=== PATIENT | female | born 1960 | race Caucasian/White ===

== ENCOUNTER → 2018-10-04 08:39 | Outpatient (CLI) | payer OTHER, SELFPAY ==
[2017-07-01 06:10] VITALS: BMI 22.9
[2018-10-04 10:43] LABS: Cholesterol 202 mg/dL (200); High Density Lipoprotein 49 mg/dL; Triglycerides 119 mg/dL; Very Low Density Lipoprotein 24 mg/dL (5-40)
== END ==
PROVIDERS: Family Provider Family Medicine; PCP Family Medicine; Referring Provider Family Medicine; Visit Provider Family Medicine
DX: E78.5 Hyperlipidemia, unspecified (principal)
CPT/HCPCS: 36415; 80061

== ENCOUNTER → 2018-10-24 11:42 | Outpatient (CLI) | payer OTHER, SELFPAY ==
[2018-10-24 15:37] LABS: Internal QC Validated? YES +Cl - CLEAR BKGD; Monotest Negative (Negative)
== END ==
PROVIDERS: Family Provider Family Medicine; PCP Family Medicine; Visit Provider Family Medicine
DX: B34.9 Viral infection, unspecified (principal)
CPT/HCPCS: 36415; 86308

== ENCOUNTER → 2018-12-09 | Outpatient (CLI) | payer OTHER, SELFPAY ==
[2017-07-01 06:10] VITALS: BMI 22.9
== END | disposition home or self-care (01) ==
LOC: BFHLAB 14:04
PROVIDERS: Family Provider Family Medicine; PCP Family Medicine; Visit Provider Family Medicine
DX: N39.0 Urinary tract infection, site not specified (principal)
CPT/HCPCS: 87086; 87088

== ENCOUNTER → 2019-01-28 | Outpatient (CLI) | payer OTHER, SELFPAY | END | disposition home or self-care (01) | LOC: BFHLAB 13:25 | PROVIDERS: Family Provider Family Medicine; PCP Family Medicine; Visit Provider Family Medicine | DX: R30.0 Dysuria (principal) | CPT/HCPCS: 87086; 87088; 87186 ==

== ENCOUNTER 2019-03-19 07:55 | Outpatient (RCR) | payer OTHER, SELFPAY ==
--- NOTE | 2019-03-20 10:11 | HP.PTEVAL_ITS ---
Patient's Visit Information RAFAEL FRIAS is a 59 year old F referred to Physical Therapy by Juana Weaver DO with a diagnosis of R lateral epcondylitis. Date of Evaluation: 03/19/19 Physical Therapist: Josué Barajas DPT - Visit Plan Frequency: 2x /Week Duration: 4 Weeks Plan: Start with US to medial aspect of ulnar groove, ulnar and radial nerve glides, wrist/elbow strengthening. - Subjective Findings: Pt. is here today for her initial evaluation with diagnosis of R lateral epicondylitis. Pt. reports having pain since the start of summer. She reports her pain has improved , but now has pain at olecranon process on both sides.Pt. reports no mech of injury. 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 Pt. reports having to stop lifting due to think this was causing her pain, but stopping has not resolved her pain. Pt. has trialed some ice and heat, no relief. Mild relief with ibuprophen. Pt. has not had any imaging. Pt. does play the violin, but has not do so recently due to time constraints. Pt. is hopeful to reduce symptoms in order to get back to all recreational activities without limitations. - Pain R medial/lateral aspects of olecranon Pain Intensity (Out of 10): 2 Pain Intensity Range: 1, 6 - Objective POSTURE: Pt. has slight FH posture, slight roundeds shoulders, but equal heights. Pt. has normal elbow positioning as well. PALPATION: Pt. has slight tenderness at lateral epcondyle, but more pain at ulnar groove and lateral to olecranon process. No distal pain. NEURO: normal throughoutl but does have slight decreased sensation at 4/5 fingers. ROM: Pt. has full ROM of R shoulder and elbow, but does have pain at both end range flexion and end range extension, same places. MMT: RUE: wrist 5/5 throughout; elbow 4+/5 throughout; shoulder 4+/5 throughout. 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 LUE- 58#, 59#, 39# - Special Tests R Elbow Flexion Test - Cubital Tunnel: Positive R Elbow Tinels - Ulnar n.: Positive R Elbow Flexion/Elbow Exension Test Supine - Elbow Fracture: Negative R Elbow Valgus Stress Test - MCL Instability: Negative R Elbow Varus Stress Stest - MCL Instability: Negative R Elbow Posterior Lateral Rotator Instability - as named: Negative R Elbow Biceps Squeeze - Rupture Biceps: Negative R Elbow Lat Epiconylitis - as named: Negative - Goals Goal 1:: Pt. to be I with HEP. Goal Time Frame: 4-6 Weeks Goal 2:: Pt. to sleep throughout the night without icnrease in symptoms. Goal Time Frame: 4-6 Weeks Goal 3:: Pt. to have increased RUE strength increased symmetical to L side including accounts payables clerk strength. Goal Time Frame: 4-6 Weeks Goal 4:: Pt. to be able to resume all lifting routines without increase in symptoms. Goal Time Frame: 4-6 Weeks Goal 5:: Pt. to resume playing violin without increase in symptoms. - Rehabilitation Potential Physical Therapy Diagnosis: Pt. has signs and symptoms consistent with R elbow pain. With the special testing, she does have some mild lateral epicondyle pain, but most of her pain is now coming from posterior aspect of elbow (both medially and laterally to olecranon process). Pt. has some nerve type symptoms along her ulnar nerve. With this in mind I want to rule out a nerve entraptment or soft tissue causing nerve compression. Rehabilitation Potential: Good - Anticipated Interventions Patient/Client Instruction: Educate patient on: Condition, Plan of Care, Risk Factors, Benefits of Fitness Program For the Purpose of:: To facilitate caregiver knowledge, To improve self management, To prevent re-injury, To improve ability to perform tasks related to life management, To improve tolerance to ADL's Therapeutic Exercise to Include: Strength training, Power training, Postural training, Flexibilty training, Passive ROM, Active ROM, Scapular Strength/Stabilization For the Purpose of:: To decrease pain, To decrease swelling/inflammation, To increase ROM, To improve nutrient delivery to tissue, To increase oxygenation perfusion, To improve muscle performance and motor function, To improve ability of physical actions for home/community/work/leisure, To improve health of tissue, To decrease soft tissue restriction, To increase flexibility/ROM, To improve balance Manual Therapy Techniques to Include: Mobilization, Functional dry needling, Soft tissue mobilization For the Purpose of:: To decrease pain, To decrease swelling/inflammation, To increase ROM, To improve nutrient delivery to tissue, To improve health of tissue, To decrease soft tissue restriction IF ES: Yes Cryotherapy (ice pack, ice massage): Yes Ultrasound (thermal/non thermal): Yes For the Purpose of:: To decrease pain, To decrease swelling/inflammation, To improve nutrient delivery to tissue, To improve health of tissue, To decrease soft tissue restriction, To increase flexibility/ROM Thank you for the opportunity to evaluate your patient. For Medicare and Medicare HMO plans, please review the plan of care and approve it. It will need to be FAXED BACK to us at [phone] for Medicare purposes. For Medicare only, by signing this I certify the plan of care. Please let me know if there are questions or concerns regarding this plan of care. Physician Signature: Date:
--- NOTE | 2019-09-14 09:30 | HP.PT.NRP ---
HP - Discharge Summary (1) - Patient Information RAFAEL FRIAS was seen in my office for initial evaluation on 03/19/19. The following Plan of Care was established for this patient: Initial Frequency: 2x /Week Initial Duration: 4 Weeks - Anticipated Interventions Patient/Client Instruction: Educate patient on: Condition, Plan of Care, Risk Factors, Benefits of Fitness Program For the Purpose of:: To facilitate caregiver knowledge, To improve self management, To prevent re-injury, To improve ability to perform tasks related to life management, To improve tolerance to ADL's Therapeutic Exercise to Include: Strength training, Power training, Postural training, Flexibilty training, Passive ROM, Active ROM, Scapular Strength/Stabilization For the Purpose of:: To decrease pain, To decrease swelling/inflammation, To increase ROM, To improve nutrient delivery to tissue, To increase oxygenation perfusion, To improve muscle performance and motor function, To improve ability of physical actions for home/community/work/leisure, To improve health of tissue, To decrease soft tissue restriction, To increase flexibility/ROM, To improve balance Manual Therapy Techniques to Include: Mobilization, Functional dry needling, Soft tissue mobilization For the Purpose of:: To decrease pain, To decrease swelling/inflammation, To increase ROM, To improve nutrient delivery to tissue, To improve health of tissue, To decrease soft tissue restriction IF ES: Yes Cryotherapy (ice pack, ice massage): Yes Ultrasound (thermal/non thermal): Yes For the Purpose of:: To decrease pain, To decrease swelling/inflammation, To improve nutrient delivery to tissue, To improve health of tissue, To decrease soft tissue restriction, To increase flexibility/ROM This patient was last seen in our office 03/19/19. Pertinent comments regarding their Physical therapy will appear below: Pt. was seen for her initial evaluaton with lateral epicondylitis. Pt. has not been seen in several months and will be DC from PT at this point intime. At this point I will be discontinuing this patient from physical therapy. I would be happy to see this patient again in the future if found appropriate by the physician. Thank you! Josué Barajas, ROSALVA
== END 2019-03-19 19:00 | disposition home or self-care (01) ==
LOC: PT 07:55
PROVIDERS: Family Provider Family Medicine; PCP Family Medicine; Referring Provider Family Medicine; Visit Provider Family Medicine
DX: M77.11 Lateral epicondylitis, right elbow (principal)
CPT/HCPCS: 97161

== ENCOUNTER → 2020-04-16 | Outpatient (CLI) | payer OTHER, SELFPAY ==
[2017-07-01 06:10] VITALS: BMI 22.9
[2020-04-16 11:16] LABS: Cholesterol 237 mg/dL (200); High Density Lipoprotein 46 mg/dL; Triglycerides 124 mg/dL; Very Low Density Lipoprotein 25 mg/dL (5-40)
== END | disposition home or self-care (01) ==
LOC: LAB 10:14
PROVIDERS: PCP Family Medicine; Referring Provider Family Medicine; Visit Provider Family Medicine
DX: E78.5 Hyperlipidemia, unspecified (principal)
CPT/HCPCS: 36415; 80061

== ENCOUNTER → 2021-07-25 14:26 | Outpatient (CLI) | payer OTHER, SELFPAY ==
--- NOTE | 2021-07-25 14:30 | BI_ITS ---
MAMMOGRAPHY - BILATERAL DIAGNOSTIC REASON FOR EXAM: Female, 61 years old. One-week history of right breast lump. Prior right breast biopsy. PERTINENT HISTORY: Grandmother with breast cancer. TECHNIQUE: Digital bilateral breast maribel (3D mammographic acquisition) in the CC and MLO projections. 2-D mediolateral oblique (MLO) and craniocaudad (CC) views of both breasts were obtained. CAD: Full Field Digital Mammography with Computer Added Detection was performed. COMPARISON: Comparison is made with prior abdomen examination dated 09/30/2020. FINDINGS: Breast Composition: There are scattered areas of fibroglandular density. There are no dominant masses or suspicious calcifications. A tissue clip marker is seen within a 2 mm nodular density in the upper outer aspect of the right breast. This is unchanged. Stable benign-appearing bilateral axillary lymph nodes No other significant abnormalities are identified. There has been no significant change since the prior study. BI/DIAG MAMM W/CAD, BILAT IMPRESSION: Stable bilateral diagnostic mammogram. With the patient''s history of a palpable lump in the right breast, correlation with ultrasound is recommended. ASSESSMENT CATEGORY: BIRADS Category 0: Incomplete. Need additional imaging evaluation. A letter regarding these results will be sent to the patient by the facility within 30 days. Approximately 10% of breast cancers are not detected by mammography. A normal mammogram should not delay biopsy of a clinically suspicious abnormality. Electronically Signed: Kj Lutz MD at 8:39 EST , Service support ,
--- NOTE | 2021-07-25 15:23 | US_ITS ---
STUDY: ULTRASOUND BREAST - RIGHT REASON FOR EXAM: Female, 61 years old. Palpable lump in the right breast. TECHNIQUE: Axial and longitudinal images of the RIGHT breast were performed with a high resolution ultrasound transducer. # OF IMAGES: 32 COMPARISON: Comparison is made with prior mammogram done earlier in the day. FINDINGS: RIGHT Breast: The inferior half of the right breast was examined by ultrasound. Fibroglandular tissue is seen. No significant abnormality is present. US/Breast Limited Unilateral IMPRESSION: Unremarkable sonogram. ASSESSMENT CATEGORY: BIRADS Category 1: Negative. A letter regarding these results will be sent to the patient by the facility within 30 days. Electronically Signed: Kj Lutz MD at 8:40 EST , Service support ,
== END ==
PROVIDERS: PCP Family Medicine; Visit Provider Family Medicine
DX: N63.14 Unspecified lump in the right breast, lower inner quadrant (principal)
CPT/HCPCS: 76642; 77062; 77066; G0279

== ENCOUNTER 2022-01-22 14:30 | Outpatient (RCR) | payer OTHER, SELFPAY ==
--- NOTE | 2021-12-21 16:48 | HP.PTEVAL_ITS ---
Patient's Visit Information RAFAEL FRIAS is a 61 year old F referred to Physical Therapy by Dr. Mojgan Marino MD with a diagnosis of neck pain. Date of Evaluation: 12/21/21 Physical Therapist: Min Painting, ZABRINAT, OCS, CSCS - Visit Plan Frequency: 2x /Week Duration: 4-6 Weeks Plan: 2x/week for 4 weeks for... 1. STM to L UT and lev scap and stretch same. 2. progress Sera ret/ext ex and cervical mobs as needed. 3. strength neck and posture and progress to HEP. 4. MH as needed. - Subjective Neck has been hurting on left side in upper neck and into UT. Has been hurting on and off for months without reason. More intense first week in December for no apparent reason, was hiking alot at outdoor education camp. Worse in the morning and can wake her up at night. Changing pillows did not help. Meds include ibuprofen which helps but doesn't want to take alf. Tried voltaren which has not helped. No arm symptoms of tingling or weakness or pain. Wakes her up at night sometimes. 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 Plays violin sidebent left which does not hurt or keep her from playing. Tried exercise at home stetching into flexion and extension. HEP at home includes PPU, pelvic tilts, bugs, quadruped bugs, neck ROM, band for UE, 5# weights rows, - Pain L neck Pain Intensity (Out of 10): 1 Pain Intensity Range: 0, 4 - Objective Walks and trasnfers I today. Posture is forward head adn elevated scap B. Tender to touch L lev scap origin and insertion on scap. Tighter L vs R. - c/s compression. UE strength 4/5 without myotomal problems or unusual pain. sensation UE WNL to gross light touch. Reflexes bi and tri 2/3. AROM c/s ext 48 pain left. SB L limited and stretchy vs R. Rotation L 45 and R 70 with pain L. repeated protraction causes L neck pain. NE overall. repeated retraction no pain...NE. repeated ext much better motion and NE pain. - Balance/Special Test Scores Oswestry Neck Score: 10 - Goals Goal 1:: Full aROM cervical without pain Goal Time Frame: 2-4 Weeks Goal 2:: Patien t feel neck pain 80% better and manageable with ex Goal Time Frame: 4-6 Weeks Goal 3:: less than 5 score on oswestry Goal Time Frame: 4-6 Weeks Goal 4:: I HEP to manage neck symptoms Goal Time Frame: 4-6 Weeks - Rehabilitation Potential Physical Therapy Diagnosis: likely cervical derangement and soft tissue tenderness effecting function Rehabilitation Potential: Fair - Anticipated Interventions Patient/Client Instruction: Educate patient on: Condition, Plan of Care For the Purpose of:: To decrease pain, To increase ROM, To increase tolerance to activity/condition/position, To improve ability of physical actions for home/community/work/leisure Therapeutic Exercise to Include: Strength training, Postural training, Passive ROM, Active ROM, Sera Exercises For the Purpose of:: To decrease pain, To decrease swelling/inflammation, To improve muscle performance and motor function, To improve ability of physical actions for home/community/work/leisure, To improve gait and locomotor functions Manual Therapy Techniques to Include: Mobilization, Passive ROM, Soft tissue mobilization For the Purpose of:: To decrease pain, To increase ROM Thermo therapy (hot pack): Yes For the Purpose of:: To decrease pain, To increase ROM Thank you for the opportunity to evaluate your patient. For Medicare and Medicare HMO plans, please review the plan of care and approve it. It will need to be FAXED BACK to us at [phone] for Medicare purposes. For Medicare only, by signing this I certify the plan of care. Please let me know if there are questions or concerns regarding this plan of care. Physician Signature: Date:____
--- NOTE | 2022-01-22 15:00 | HP.PTDCSUM ---
It has been my pleasure to treat RAFAEL FRIAS referred by Dr. Mojgan Marino MD, with the diagnosis of neck pain for a total of 6 visit(s). Discharge Date: 01/22/22 Please see the following information for a summary of their discharge status. Subjective: Up and down. Was on vacationand had intermittent pain. Started to keep her up at night 2/7 nights. Pain is still up to 8/10 in L UT. Turning head to the left can be difficult at times rotation. 2/10 at most times. Infrequent days that it is 0/10. Doing strengthening fairly regularly at home. No f/u scheduled with doctor. L neck Pain Intensity (Out of 10): 0 % Improvement: 0 Objective/Function: 62 L rot and 70 R, pain to the L. 55 extension. Full UE AROM. reflexes 2/3 bi and tri. Pt not presenting alot differently than initial eval with ROM or pain. Goal 1:: Full aROM cervical without pain Goal Progress: Not Progressing Goal 2:: Patien t feel neck pain 80% better and manageable with ex Goal Progress: Not Progressing Goal 3:: less than 5 score on oswestry Goal Progress: Not Progressing Goal 4:: I HEP to manage neck symptoms Goal Progress: not helping. Plan: Recommend return to doctor for next medical step(MRI, injection, ortho, pain doc?) Discharge Comments: back to doctor for next medical step If there are questions or concerns regarding this patient's physical therapy, please feel free to call me at [phone]. Thank you for the referral of this patient. Sincerely, Min Painting, DPT, OCS, CSCS Balance/Gait/Functional tests - Balance/Special Test Scores Oswestry Neck Score: 11
== END 2022-01-22 19:00 | disposition home or self-care (01) ==
LOC: PT 14:30
PROVIDERS: PCP Family Medicine; Referring Provider Family Medicine; Visit Provider Family Medicine
DX: M54.2 Cervicalgia (principal)
CPT/HCPCS: 97110; 97140; 97161; 97164

== ENCOUNTER → 2022-08-14 | Outpatient (CLI) | payer OTHER, SELFPAY ==
--- NOTE | 2022-08-14 12:41 | BI_ITS ---
MAMMOGRAPHY - BILATERAL SCREENING REASON FOR EXAM: Female, 62 years old. Routine annual screening examination. PERTINENT HISTORY: Grandmother with breast cancer. History of prior right breast biopsies. TECHNIQUE: Digital bilateral breast mary kate (3D mammographic acquisition) in the CC and MLO projections. 2-D mediolateral oblique (MLO) and craniocaudad (CC) views of both breasts were obtained. CAD: Full Field Digital Mammography with Computer Added Detection was performed. COMPARISON: Comparison is made with prior examination dated 08/09/2016 and 07/25/2021. FINDINGS: Breast Composition: There are scattered areas of fibroglandular density. There are no dominant masses or suspicious calcifications. A tissue clip marker is seen in a 2 mm nodule in the upper outer aspect of the right breast. Stable bilateral fat-containing axillary nodes. No other significant abnormalities are identified. There has been no significant change since the prior study. BI/SCRN MAMM (CAD)W/MARY KATE BILAT IMPRESSION: Stable bilateral screening mammogram. Yearly follow-up mammogram recommended. (A) ASSESSMENT CATEGORY: BIRADS Category 2: Benign. A letter regarding these results will be sent to the patient by the facility within 30 days. Approximately 10% of breast cancers are not detected by mammography. A normal mammogram should not delay biopsy of a clinically suspicious abnormality. [id number] Electronically Signed: Kj Lutz MD at 13:34 EST ,
== END | disposition home or self-care (01) ==
PROVIDERS: PCP Family Medicine; Visit Provider Family Medicine
DX: Z12.31 Encounter for screening mammogram for malignant neoplasm of breast (principal)
CPT/HCPCS: 77063; 77067

== ENCOUNTER → 2022-11-15 | Outpatient (CLI) | payer OTHER, SELFPAY ==
--- NOTE | 2022-11-15 15:47 | RAD_ITS ---
STUDY: X-RAY - RIGHT SHOULDER REASON FOR EXAM: Female, 62 years old. Fall. Pain. TECHNIQUE: 4 view(s) of the shoulder. COMPARISON: None. FINDINGS: Normal glenohumeral articulation. Normal acromioclavicular joint. Normal acromion. Normal humeral head and visualized proximal humerus. The soft tissue structures are unremarkable. Normal visualized pulmonary apex. RAD/Shoulder min 2 Views IMPRESSION: Normal x-ray examination of the shoulder. Electronically Signed: Tomi Avery, at 10:02 EDT ,
== END | disposition home or self-care (01) ==
PROVIDERS: PCP Family Medicine; Referring Provider Family Medicine; Visit Provider Family Medicine
DX: S46.001A Unspecified injury of muscle(s) and tendon(s) of the rotator cuff of right shoulder, initial encounter (principal); W19.XXXA Unspecified fall, initial encounter
CPT/HCPCS: 73030

== ENCOUNTER 2022-12-03 09:54 | Outpatient (RCR) | payer OTHER, SELFPAY ==
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
--- NOTE | 2023-02-25 11:46 | HP.PTDCSUM ---
Discharge Summary D/C summary: It has been my pleasure to treat RAFAEL FRIAS referred by Dr. Mojgan Marino MD, with the diagnosis of Right Shoulder for a total of 1 visit(s). Discharge Date: Please see the following information for a summary of their discharge status. Goals Goal 1:: Patient will be I with HEP and progression Plan Plan: 1x visit for HEP- posture and RTC and scapular strength/stabilization HEP Given IE: Posture, Phase 3 RTC Strength, Triceps Extn D/C Information d/c sentence: If there are questions or concerns regarding this patient's physical therapy, please feel free to call me at [phone]. Thank you for the referral of this patient. Sincerely, Emily Cook, ZABRINAT Balance/Gait/Functional tests Balance/Special Test Scores Quick DASH Score: 34.0900
== END 2022-12-03 19:00 | disposition home or self-care (01) ==
LOC: PT 09:54
PROVIDERS: PCP Family Medicine; Referring Provider Family Medicine; Visit Provider Family Medicine
DX: S46.001D Unspecified injury of muscle(s) and tendon(s) of the rotator cuff of right shoulder, subsequent encounter (principal)
CPT/HCPCS: 97110; 97162

== ENCOUNTER → 2023-05-23 | Outpatient (CLI) | payer OTHER, SELFPAY ==
[2023-05-23 12:13] LABS: Absolute Lymphocyte Count 1.67 X10^3/uL (0.83-4.51); Absolute Neutrophil Count 5.6 X10^3/uL (2.0-7.7); Basophil# 0.06 X10^3/uL; Basophil% 0.7 % (0-1); Eosinophil# 0.31 X10^3/uL; Eosinophils% 3.7 % (0-5); Hematocrit 42.4 % (37-47); Hemoglobin 13.4 g/dL (12.0-15.0); Lymphocyte # 1.67 X10^3/ul (0.83-4.51); Mean Corp Hgb Conc 31.6 g/dL (32-36); Mean Corpuscular Hgb 31.1 pg (27.0-32.0); Mean Corpuscular Volume 98.4 fL (81-99); Mean Platelet Vol. 10.5 fl (6.2-12.0); Monocyte# 0.66 X10^3/uL; Monocyte% 7.9 % (0-10); NRBC Flagged by Analyzer 0 % (0-5); Neutrophil # 5.64 X10^3/uL (2.7-7.7); Neutrophil % 67.5 % (47-70); Platelet Count 310 K/mm3 (150-450); RBC Distribution Width CV 12.6 % (11.6-14.6); RBC Distribution Width SD 45.2 fl (35.1-43.9); Red Blood Count 4.31 M/mm3 (4.2-5.4); White Blood Count 8.4 K/mm3 (4.4-11.0)
[2023-05-23 12:59] LABS: ALB/GLOB Ratio 1.1 RATIO (0.9-2.4); AST(SGOT) 21 U/L (15-37); Alanine Aminotransfer ALT/SGPT 33 U/L (13-56); Albumin, Serum 3.9 g/dL (3.2-5.0); Alkaline Phosphatase 70 U/L (45-117); Anion Gap 4 (5-15); BUN 14 mg/dL (7-18); Calcium,Total 9.4 mg/dL (8.5-10.1); Chloride 109 mmol/L (98-107); Cholesterol 160 mg/dL (200); Creatinine, Serum 0.67 mg/dL (0.55-1.02); EST Glomerular Filtration Rate 95 mL/min (>60); Est Glom Filt Rate - Afr Amer 115 mL/min (>60); Globulin 3.7 g/dL (2.2-4.2); Glucose 92 mg/dL (74-106); High Density Lipoprotein 49 mg/dL; Potassium 4.1 mmol/L (3.5-5.1); Protein, Total 7.6 g/dL (6.4-8.2); Sodium Level 141 mmol/L (136-145); Triglycerides 141 mg/dL; Very Low Density Lipoprotein 28 mg/dL (5-40)
== END | disposition home or self-care (01) ==
LOC: BFHLAB 10:32
PROVIDERS: PCP Family Medicine; Referring Provider Family Medicine; Visit Provider Family Medicine
DX: Z00.00 Encounter for general adult medical examination without abnormal findings (principal); E78.5 Hyperlipidemia, unspecified
CPT/HCPCS: 36415; 80053; 80061; 85025

== ENCOUNTER → 2023-08-16 | Outpatient (CLI) | payer OTHER, SELFPAY ==
--- NOTE | 2023-08-16 09:58 | BI_ITS ---
MAMMOGRAPHY - BILATERAL SCREENING REASON FOR EXAM: Female, 63 years old. Routine annual screening examination. PERTINENT HISTORY: Grandmother with breast cancer. History of right breast biopsies. TECHNIQUE: Digital bilateral breast mary kate (3D mammographic acquisition) in the CC and MLO projections. 2-D mediolateral oblique (MLO) and craniocaudad (CC) views of both breasts were obtained. CAD: Full Field Digital Mammography with Computer Added Detection was performed. COMPARISON: Comparison is made with prior study dated August 14, 2022 and July 25, 2021. FINDINGS: Breast Composition: There are scattered areas of fibroglandular density. There are no dominant masses or suspicious calcifications. A tissue clip marker is seen within a tiny nodule in the upper outer aspect of the right breast. Stable small benign-appearing bilateral axillary lymph nodes. No other significant abnormalities are identified. There has been no significant change since the prior study. BI/SCRN MAMM (CAD)W/MARY KATE BILAT IMPRESSION: Stable bilateral screening mammogram. Yearly follow-up mammogram recommended. (A) ASSESSMENT CATEGORY: BIRADS Category 2: Benign. A letter regarding these results will be sent to the patient by the facility within 30 days. Approximately 10% of breast cancers are not detected by mammography. A normal mammogram should not delay biopsy of a clinically suspicious abnormality. [id number] Electronically Signed: Kj Lutz MD at 15:14 EST ,
--- OUTSIDE RECORDS SUMMARY | 2023-08-16 10:51 | XMS RPT_ITS | CCD ---
Author Name Unknown Address [address] [place] [address] Organization [facility] Care Team Providers Care Instrument Repairer Helper Name Role Phone Chan Fulton III Primary Care Provider Kristal Maciel Primary Care Provider DR LENA SONG DO Primary Care Physician Allergies Allergy Classification Reported Allergen(s) Allergy Type Date of Onset Reaction(s) Facility Adhesive Tape (1 source) Adhesive Tape Substance Allergy 5 Rash [facility] Work Phone: Cinnamon Bark (1 source) Cinnamon Bark Drug Allergy 5 Intolerance [facility] Work Phone: Lactose (1 source) Lactose Drug Allergy 9 [facility] Work Phone: Opioid Agonists (1 source) Codeine Drug Allergy 5 Vomiting [facility] Work Phone: PHENobarbital (1 source) PHENobarbital Drug Allergy 5 Rash [facility] Work Phone: Medications Completed/Discontinued Medications Medication Drug Class(es) Dates Sig (Normalized) Sig (Original) aspirin 81 mg delayed release oral tablet (1 source) Platelet Aggregation Inhibitor, Nonsteroidal Anti-inflammatory Drug take 1 tablet by mouth once daily aspirin, enteric coated (ASPIRIN, ENTERIC COATED) 81 mg EC tablet Indications: Change in bowel habits Take 81 mg by mouth once daily. 0 Active Problems Active Problems Problem Classification Problem Date Documented Date Episodic/Chronic Diverticulosis and diverticulitis (1 source) Diverticulitis of large intestine without perforation or abscess without bleeding; Translations: [Diverticulitis of colon (without mention of hemorrhage)] Onset: 12-24-2008 12-24-2008 Chronic Past or Other Problems Problem Classification Problem Date Documented Da te Episodic/Chronic Abdominal hernia (1 source) Inguinal hernia; Translations: [Unilateral inguinal hernia, without obstruction or gangrene, not specified as recurrent] Onset: 11-30-2008 11-30-2008 Episodic Abdominal pain (1 source) Generalized abdominal pain; Translations: [Generalized abdominal pain] Onset: 11-30-2008 11-30-2008 Episodic Lymphadenitis (1 source) Lymphadenopathy; Translations: [Enlarged lymph nodes, unspecified] Onset: 06-26-2005 06-26-2005 Episodic Other gastrointestinal disorders (1 source) Alteration in bowel elimination; Translations: [Change in bowel habit] Onset: 09-29-2014 09-29-2014 Episodic Residual codes; unclassified (1 source) Amnesia; Translations: [Other amnesia] Onset: 07-31-2007 07-31-2007 Episodic Results Test Name Value Interpretation Reference Range Facil ity Encounters Encounter Date Encounter Type Care Provider Facility Start: 10-21-2021 End: 10-21-[address] LENA SONG DO [facility] Start: 09-29-2014 End: 09-29-2014 Telephone encounter Chan Montalvo MD Work Phone: General Surgery Procedures Date Procedure Procedure Detail Performing Clinician Start: 10-15-2014 Colonoscopy Chan bray MD Work Phone: Plan of Treatment Date Care Activity Detail Author Start: 10-15-2024 Screening for malign ant neoplasm of colon [facility] Start: 04-12-2021 Influenza vaccination INFLUENZA (Sea son Ended) [facility] Start: 01-23-2010 Screening for malign ant neoplasm of colon [facility] Start: 01-23-2010 SHINGRIX VACCINE (1 of 2) BENJAMIN GRIX VACCINE (1 of 2) [facility] Start: 01-23-2005 DIABETES SCREEN DIABETES SCREEN [facility] Start: 01-23-2005 LIPID SCREEN LIPID SCREEN [facility] Start: 2000 Mammography MAMMOGRAM [facility] Start: 01-23-1990 HPV TESTING HPV TESTING [facility] Start: 01-23-1981 PAP TESTING PAP TESTING [facility] Start: 01-23-1979 Urine microalbumin profile DTAP,TDAP ,TD (1 - Tdap) [facility] Start: 01-23-1978 HEPATITIS C SCREENING HEPATITIS C SC REENING [facility] Start: 01-23-1978 HIV SCREENING HIV SCREENING [facility] Start: 1972 Adult depression scr eening assessment DEPRESSION SCREENING [facility] Immunizations Immunization Date Immunization Notes Care Provider Ramila knox 10-28-2020 COVID-19, mRNA, LNP- S, PF, 100 mcg or 50 mcg dose; Translations: [Moderna COVID-19 Vaccine] DR LENA SONG DO [facility] 09-30-2020 COVID-19, mRNA, LNP- S, PF, 100 mcg or 50 mcg dose; Translations: [Moderna COVID-19 Vaccine] DR LENA SONG DO [facility] Payers Date Payer Category Payer Unknown MMO [employer] [id number] 2002-2019 PPO [id number] Social History Date Type Detail Facility Start: 09-29-2014 Tobacco smoking stat us WAIS Never smoker [facility] Start: 09-29-2014 Alcohol intake Current drinke r of alcohol (finding) [facility] Start: 1960 Sex Assigned At Not on file [facility] Note 10-05-2014 Telephone Encounter - Veronica Brown LPN - 10/05/2014 8:42 AM ESTTelephone Encounter - Veronica Brown LPN - 10/05/2014 8:28 AM EST Note Date & Type Note Facility 10-05-2014 Miscellaneous Notes LEFT PT MESSAGE TO INFORM HER, PER DR. MONTALVO, OK TO TAKE DOXYCYCLINE DIRECTED AND MAY PROCEED WITH COLONOSCOPY PLANNED. Veronica Brown LPN PT CALLED STATING SAS ANALYST REQUESTING PT START ORAL ATB (DOXY) FOR 1 MONTH. PT HAS COLONOSCOPY SCHEDULED FOR EARLY OCTOBER, PT ASKING IF THIS WILL BE AN ISSUE? WILL DISCUSS WITH DR. MONTALVO AND RETURN HER CALL WITH HIS ADVICE. Veronica Brown LPN documented in this encounter [facility] Evaluation + Plan note Note Date & Type Note Facility Evaluation + Plan note No data available for this section [facility] Hospital Discharge instructions Note Date & Type Note Facility Hospital Discharge instructions No data available for this section [facility] Summary Purpose Family History No Family History Records Found Advance Directives No Advanced Directives Records Found Additional Source Comments Source Comments (unrecognize d section and content) In the event this informatio n is protected by the Federal Confidentiality of Alcohol and Drug Abuse Patient Records regulations: The Federal rules restrict any use of the information to criminally investigate or prosecute any alcohol or drug abuse patient.[facility] Reason for Visit (unrecogniz ed section and content) INFORMATION SOURCE (unrecogn ized section and content) FOR RECORDS PERTAINING TO PATIENTS WHO ARE OR HAVE BEEN ENROLLED IN A CHEMICAL DEPENDENCY/SUBSTANCEABUSE PROGRAM, SOME INFORMATION MAY BE OMITTED. This clinical summary was aggregated from multiple sources. Caution should be exercised in using it in the provision of clinical care. This summary normalizes information from multiple sources, and as a consequence, information in this document may materially change the coding, format and clinical context of patient data. In addition, data may be omitted in some cases. CLINICAL DECISIONS SHOULD BE BASED ON THE PRIMARY CLINICAL RECORDS. [facility]. provides no warranty or guarantee of the accuracy or completeness of information in this document.
== END | disposition home or self-care (01) ==
LOC: OPBI 09:56
PROVIDERS: PCP Family Medicine; Referring Provider Family Medicine; Visit Provider Family Medicine
DX: Z12.31 Encounter for screening mammogram for malignant neoplasm of breast (principal)
CPT/HCPCS: 77063; 77067

== ENCOUNTER → 2024-05-26 | Outpatient (CLI) | payer OTHER, SELFPAY ==
[2024-05-26 12:56] LABS: ALB/GLOB Ratio 1.1 RATIO (0.9-2.4); AST(SGOT) 24 U/L (15-37); Alanine Aminotransfer ALT/SGPT 23 U/L (13-56); Albumin, Serum 3.9 g/dL (3.2-5.0); Alkaline Phosphatase 76 U/L (45-117); Anion Gap 6 (5-15); BUN 18 mg/dL (7-18); BUN/Creat Ratio 23.4 RATIO (10-20); Calcium,Total 9.7 mg/dL (8.5-10.1); Chloride 108 mmol/L (98-107); Cholesterol 154 mg/dL (200); Creatinine, Serum 0.77 mg/dL (0.55-1.02); EST Glomerular Filtration Rate 80 mL/min (>60); Est Glom Filt Rate - Afr Amer 97 mL/min (>60); Globulin 3.7 g/dL (2.2-4.2); Glucose 91 mg/dL (74-106); High Density Lipoprotein 47 mg/dL; Potassium 4.1 mmol/L (3.5-5.1); Protein, Total 7.6 g/dL (6.4-8.2); Sodium Level 142 mmol/L (136-145); Triglycerides 145 mg/dL; Very Low Density Lipoprotein 29 mg/dL (5-40)
[2024-05-26 13:01] LABS: Absolute Lymphocyte Count 1.73 X10^3/uL (0.83-4.51); Absolute Neutrophil Count 3.8 X10^3/uL (2.0-7.7); Basophil# 0.03 X10^3/uL; Basophil% 0.5 % (0-1); Eosinophil# 0.27 X10^3/uL; Eosinophils% 4.2 % (0-5); Hematocrit 41.3 % (37-47); Hemoglobin 13.3 g/dL (12.0-15.0); Lymphocyte # 1.73 X10^3/ul (0.83-4.51); Lymphocyte % 26.9 % (19-41); Mean Corp Hgb Conc 32.2 g/dL (32-36); Mean Corpuscular Hgb 30.6 pg (27.0-32.0); Mean Corpuscular Volume 95.2 fL (81-99); Mean Platelet Vol. 10.3 fl (6.2-12.0); Monocyte# 0.62 X10^3/uL; Monocyte% 9.6 % (0-10); NRBC Flagged by Analyzer 0 % (0-5); Neutrophil # 3.78 X10^3/uL (2.7-7.7); Neutrophil % 58.6 % (47-70); Platelet Count 292 K/mm3 (150-450); RBC Distribution Width CV 12.7 % (11.6-14.6); RBC Distribution Width SD 45.1 fl (35.1-43.9); Red Blood Count 4.34 M/mm3 (4.2-5.4); White Blood Count 6.4 K/mm3 (4.4-11.0)
== END | disposition home or self-care (01) ==
LOC: BFHLAB 10:42
PROVIDERS: PCP Family Medicine; Referring Provider Family Medicine; Visit Provider Family Medicine
DX: Z00.00 Encounter for general adult medical examination without abnormal findings (principal); E78.5 Hyperlipidemia, unspecified
CPT/HCPCS: 36415; 80053; 80061; 85025

== ENCOUNTER 2024-06-30 21:04 | Emergency (ER) | payer OTHER, SELFPAY ==
[2024-06-30 21:04] VITALS: BP 166/80; PULSE 82; RESP 16; TEMP 36.9; O2SAT 98; BMI 22.8
[2024-06-30 22:26] LABS: Mucous, Urine 0 SEEN /hpf (<or=2+)
[2024-06-30 22:28] LABS: Color, Urine Yellow (Yellow); Glucose, Dipstick Normal (Normal); Ketone-Dipstick Negative (Negative); Leukocyte Esterase-Dipstick 100 /ul (Negative); Nitrite-Dipstick Negative (Negative); Occult Blood-Urine 250 /ul (Negative); Protein-Dipstick 30 mg/dl (Negative); Urine Bilirubin Dipstick Negative (Negative); Urine Clarity Sl. Cloudy (Clear); Urine Urobilinogen Normal (Normal)
[2024-06-30 22:35] LABS: Absolute Lymphocyte Count 1.68 X10^3/uL (0.83-4.51); Absolute Neutrophil Count 10.3 X10^3/uL (2.0-7.7); Basophil# 0.04 X10^3/uL; Basophil% 0.3 % (0-1); Eosinophils% 2.3 % (0-5); Hematocrit 37.9 % (37-47); Hemoglobin 12.7 g/dL (12.0-15.0); Lymphocyte # 1.68 X10^3/ul (0.83-4.51); Lymphocyte % 12.8 % (19-41); Mean Corp Hgb Conc 33.5 g/dL (32-36); Mean Corpuscular Hgb 31.5 pg (27.0-32.0); Mean Platelet Vol. 10.1 fl (6.2-12.0); Monocyte# 0.77 X10^3/uL; Monocyte% 5.8 % (0-10); NRBC Flagged by Analyzer 0 % (0-5); Neutrophil # 10.32 X10^3/uL (2.7-7.7); Neutrophil % 78.3 % (47-70); Platelet Count 278 K/mm3 (150-450); RBC Distribution Width SD 44.4 fl (35.1-43.9); Red Blood Count 4.03 M/mm3 (4.2-5.4); White Blood Count 13.2 K/mm3 (4.4-11.0)
--- NOTE | 2024-06-30 22:50 | CT_ITS ---
STUDY: CT ABDOMEN AND PELVIS WITH CONTRAST REASON FOR EXAM: Female, 64 years old. Right flank pain RADIATION DOSAGE (If Supplied By Facility): CTDIvol = ( 6.78 ) mGy, DLP = ( 328.50 ) mGycm TECHNIQUE: Spiral CT imaging of the abdomen and pelvis was performed with intravenous contrast material ( / ), followed by coronal and sagittal reformatting. Individualized dose optimization techniques were used for this CT. COMPARISON: No relevant priors. FINDINGS: LOWER CHEST: Bibasilar dependent atelectasis versus scar formation.. Normal heart. Normal pericardium. LIVER: Normal GALLBLADDER AND BILIARY TREE: Normal gallbladder. Normal biliary ductal system. SPLEEN: Normal PANCREAS: Normal ADRENAL GLANDS: Normal KIDNEYS AND URETERS: Mild right-sided hydronephrosis with a 4 mm calculus at the right ureteropelvic junction.. BOWEL: Normal stomach. Normal small bowel. Normal appendix. Mild diverticular disease of the sigmoid colon without localized inflammation.. PERITONEUM: No free intraperitoneal air or fluid. No intra-abdominal fluid collection. LYMPH NODES: No mesenteric, retroperitoneal, or pelvic lymphadenopathy. VESSELS: Mild atherosclerotic plaque of the abdominal vasculature. URINARY BLADDER: Normal REPRODUCTIVE ORGANS: Uterus is surgically absent ABDOMINAL WALL: Normal BONES: Mild multilevel degenerative change of the spine. CT/Abdomen/Pelvis without Cont IMPRESSION: 1. 4 mm right ureteropelvic junction calculus resulting in mild right-sided hydronephrosis 2. Mild sigmoid colonic diverticulosis without evidence of acute diverticulitis. Electronically Signed: Matteo Palm MD at 0:55 EST ,
[2024-06-30 22:52] LABS: ALB/GLOB Ratio 1.1 RATIO (0.9-2.4); AST(SGOT) 26 U/L (15-37); Alanine Aminotransfer ALT/SGPT 30 U/L (13-56); Albumin, Serum 4.1 g/dL (3.2-5.0); Alkaline Phosphatase 74 U/L (45-117); Anion Gap 5 (5-15); BUN 18 mg/dL (7-18); BUN/Creat Ratio 22.4 RATIO (10-20); Calcium,Total 9.9 mg/dL (8.5-10.1); Chloride 106 mmol/L (98-107); EST Glomerular Filtration Rate 76 mL/min (>60); Est Glom Filt Rate - Afr Amer 92 mL/min (>60); Estimated Creatinine Clearance 69.09 ml/min; Globulin 3.6 g/dL (2.2-4.2); Glucose 127 mg/dL (74-106); Potassium 3.8 mmol/L (3.5-5.1); Protein, Total 7.7 g/dL (6.4-8.2); Sodium Level 138 mmol/L (136-145)
[2024-06-30 22:56] LABS: Red Blood Cells-Urine 25-50 SEEN /hpf (0-5); Squamous Epithelial Cells - UA 0-5 SEEN /hpf (5-10); White Blood Cells 0-5 SEEN /hpf (0-5)
[2024-06-30 22:59] LABS: Bacteria RARE /hpf (None Seen)
[2024-06-30 23:04] VITALS: BP 132/73; PULSE 77; RESP 17; O2SAT 98
[2024-06-30] MEDS: 0.9% Normal Saline (1000mL) 1,000 ML 999 ML IV (23:11)
--- NOTE | 2024-07-01 01:13 | EDS_ITS ---
HPI History of Present Illness Chief Complaint: Flank Pain Informant: patient and spouse/S.O. Narrative Narrative: Patient is a 64-year-old female with no significant past medical history. She states that this evening roughly 2 to 3 hours prior to arrival she developed a right sided back/flank pain that was sharp in nature. She states that the pain caused bouts of nausea and vomiting. She also reports she noticed some hematuria after the pain began. She denies any recent trauma or excessive activity she denies any loss of bowel or bladder control or IV drug use. She states the pain has since resolved but as she does not know what caused the symptoms presents for evaluation [facility] Home Medications ?Medication ?Instructions ?Recorded ?Last Taken ?Type aspirin 81 mg tablet,delayed 81 mg PO DAILY@0800 11/18/13 06/24/17 History release calcium carbonate 2 tab PO BID 11/18/13 11/26/13 History cholecalciferol (vitamin D3) 50 1 tab PO BID 11/18/13 11/26/13 History mcg (2,000 unit) tablet (Vitamin D3) ketoconazole 2 % topical cream 1 applic topical DAILY 11/18/13 11/26/13 History multivitamin with folic acid 400 1 tab PO DAILY 11/18/13 11/26/13 History mcg tablet (Thera) estradiol 0.01% (0.1 mg/gram) 1 dose vaginal MOTH 04/02/17 Unknown History vaginal cream (Estrace) cyanocobalamin (vitamin B-12) 500 1,000 mcg PO DAILY@0800 04/08/17 Unknown History mcg tablet docusate sodium 100 mg capsule 100 mg PO BID PRN PRN Constipation 07/01/17 Unknown Rx (DOK) ##60 oxycodone 5 mg tablet 5 - 10 mg (1 - 2 x 5 mg) PO Q6H 07/01/17 Unknown Rx PRN PRN Severe Pain (6-10) ##20 cephalexin 500 mg capsule 500 mg PO TID 7 days #21 caps 07/01/24 Unknown Rx ketorolac 10 mg tablet 10 mg PO 4X/DAY PRN pain 5 days 07/01/24 Unknown Rx #20 tabs ondansetron 4 mg disintegrating 4 mg PO TID PRN nausea and 07/01/24 Unknown Rx tablet vomiting #21 tabs tamsulosin 0.4 mg capsule (Flomax) 0.4 mg PO DAILY 14 days #14 caps 07/01/24 Unknown Rx Allergy/AdvReac Type Severity Reaction Status Date / Time cat dander Allergy Inflammation Verified 06/30/24 21:05 of lung phenobarbital Allergy Rash Verified 06/30/24 21:05 codeine AdvReac Intermediate Nausea/Vom/ Verified 06/30/24 21:05 Diarrhea adhesive AdvReac Mild Rash Verified 06/30/24 21:05 lactose AdvReac Nausea/Vom/ Verified 06/30/24 21:05 Diarrhea Social History Smoking Status: Never smoker ROS ROS ED Constitutional Constitutional ED: Denies chills or fever(s) ENT ENT ED: Denies sore throat Cardiovascular Cardiovascular: Denies chest pain Respiratory/Chest Respiratory/Chest: Denies cough or dyspnea Gastrointestinal Gastrointestinal: Reports abdominal pain, nausea and vomiting; Denies diarrhea Genitourinary Genitourinary ED: Reports hematuria; Denies dysuria or urinary frequency Musculoskeletal Musculoskeletal: Reports back pain Integumentary Denies rash Neurologic Neurologic: Denies headache(s) Hematologic/Lymphatic Hematologic/Lymphatic: Denies easy bleeding or easy bruising EXAM Physical Exam Const Vital Signs: 06/30/24 23:04 Pulse Rate 77 Respiratory Rate 17 Blood Pressure 132/73 H Blood Pressure Mean 92 Pulse Ox 98 Oxygen Delivery Method Room Air Positive well nourished and well developed General Appearance ED: well developed; Negative for pallor HEENT HEENT Narrative: Normocephalic atraumatic Eyes PERRL and EOMs intact bilaterally General Eye ED: Negative for scleral icterus Neck supple Resp normal respiratory effort and clear to auscultation bilaterally Cardio regular rate and regular rhythm GI normal to inspection, nondistended, normoactive bowel sounds, non-tender, non- distended and no masses GI Narrative: No voluntary guarding or rigidity or pulsatile mass Auscultation: normoactive bowel sounds Palpation: soft Back/Spine Back/Spine Narrative: Positive right CVA pain noted Extremity normal to inspection Neuro oriented x3, CN's II-XII intact bilaterally and no sensory deficits noted Sensorium / Orientation: alert Motor Exam: strength 5/5 throughout Psych mental status grossly normal Skin no rashes or lesions noted and no wounds Skin Narrative: No overlying soft tissue changes to suggest trauma or infection General Skin Exam: Negative for jaundice or pallor MDM MDM MDM Narrative Medical decision making narrative: Patient arrived to the ER hypertensive but otherwise with stable vitals. She reports the sudden onset of right sided flank/back pain that led to bouts of nausea and vomiting. Differential diagnosis is for kidney stone versus UTI versus pyelonephritis versus biliary colic versus acute cholecystitis versus atypical pancreatitis. The patient's history and exam is most consistent with kidney stone and secondary to his basic labs urine sample and a noncontrast CT were obtained. Patient's white count is slightly elevated at 13.2 which is most likely stress response. Her urine does show changes concerning for developing infection and CT scan confirms there is a stone in the UPJ causing obstruction. However at this time she had spontaneous resolution of her pain she does not have acute kidney injury and there are no signs of urosepsis. Therefore there is no need for admission or emergent urology consultation. Patient be placed on pain control as well as antibiotics and her urine to be sent for culture. However without DAMON or urosepsis changes and improvement of pain without any type of medication ER she is otherwise safe for discharge History & Record Review Discussion w/independent historian: Patient and Significant other Lab Data Attestation: I reviewed the patient's lab results. Labs: Laboratory Results - last 24 hr 06/30/24 06/30/24 22:15 22:26 WBC 13.2 H RBC 4.03 L Hgb 12.7 Hct 37.9 MCV 94.0 MCH 31.5 MCHC 33.5 RDW Std Deviation 44.4 H RDW Coeff of Jade 13.0 Plt Count 278 MPV 10.1 Immature Gran % (Auto) 0.500 Neut % (Auto) 78.3 H Lymph % (Auto) 12.8 L [place] % (Auto) 5.8 Eos % (Auto) 2.3 Baso % (Auto) 0.3 Absolute Neuts (auto) 10.3 H Absolute Lymphs (auto) 1.68 Nucleated RBC % 0 Sodium 138 Potassium 3.8 Chloride 106 Carbon Dioxide 27.0 Anion Gap 5 BUN 18 Creatinine 0.80 Estim Creat Clear Calc 69.09 Est GFR (MDRD) Af Amer 92 Est GFR (MDRD) Non-Af 76 BUN/Creatinine Ratio 22.4 H Glucose 127 H Calcium 9.9 Total Bilirubin 0.40 AST 26 ALT 30 Alkaline Phosphatase 74 Total Protein 7.7 Albumin 4.1 Globulin 3.6 Albumin/Globulin Ratio 1.1 Urine Color Yellow Urine Clarity Sl. Cloudy Urine pH 7.0 Ur Specific [place] 1.010 Urine Protein 30 H Urine Glucose (UA) Normal Urine Ketones Negative Urine Occult Blood 250 H Urine Nitrite Negative Urine Bilirubin Negative Urine Urobilinogen Normal Ur Leukocyte Esterase 100 H Urine RBC 25-50 SEEN Urine WBC 0-5 SEEN Ur Squamous Epith Cells 0-5 SEEN Urine Bacteria RARE Urine Mucus 0 SEEN Radiography Diagnostic Testing: Clinical Impression(s) from Imaging Studies Abdomen/Pelvis CT 06/30/24 22:50 IMPRESSION: 1. 4 mm right ureteropelvic junction calculus resulting in mild right-sided hydronephrosis 2. Mild sigmoid colonic diverticulosis without evidence of acute diverticulitis. Electronically Signed: Matteo Palm MD at 0:55 EST , Discharge Plan Triage Chief Complaint: Flank Pain ED Provider: Jesse Schwab Dx/Rx/DC Orders Clinical Impression: Kidney stone, Renal colic Instructions: ED Kidney Stone with Pain Prescriptions: New ketorolac 10 mg tablet 10 mg PO 4X/DAY PRN (Reason: pain) 5 Days Qty: 20 0RF ondansetron 4 mg tablet,disintegrating 4 mg PO TID PRN (Reason: nausea and vomiting) Qty: 21 0RF cephalexin 500 mg capsule 500 mg PO TID 7 Days Qty: 21 0RF tamsulosin [Flomax] 0.4 mg capsule 0.4 mg PO DAILY 14 Days Qty: 14 0RF No Action aspirin 81 MG tablet 81 mg PO DAILY@0800 Patient Comments: ASK ABOUT STOPPING. calcium carbonate 500 MG tablet 2 tab PO BID Patient Comments: CALCUIM SUPPLEMENT ketoconazole 15 GM cream 1 applic topical DAILY Patient Comments: ROSEACIA/ FACE cholecalciferol (vitamin D3) [Vitamin D3] 2,000 UNIT tablet 1 tab PO BID Patient Comments: SUPPLEMENT multivitamin with folic acid [Thera] 1 TABLET tablet 1 tab PO DAILY estradiol [Estrace] 42.5 GM cream 1 dose vaginal MOTH Patient Comments: 2 TIMED/WEEK cyanocobalamin (vitamin B-12) 500 MCG tablet 1,000 mcg PO DAILY@0800 oxycodone 5 MG tablet 5 - 10 mg PO Q6H PRN PRN (Reason: Severe Pain (6-10)) Qty: 20 0RF docusate sodium [DOK] 100 MG capsule 100 mg PO BID PRN PRN (Reason: Constipation) Qty: 60 1RF Primary Care Provider: Mojgan Marino Referrals: Mojgan Marino MD [Primary Care Provider] - Anjum Lozano MD [Med Staff - Active Staff] - Activity Restrictions/Additional Instructions: If your pain is not controlled with the prescribed medication or you develop a fever of 100.4 or higher please return to the ER for repeat evaluation Print Language: Zambian Disposition Disposition: Home, Self Care Discharge Date/Time: 07/01/24 03:10
== END 2024-07-01 03:10 | disposition home or self-care (01) ==
PROVIDERS: Emergency Provider Emergency Medicine; PCP Family Medicine; Visit Provider Emergency Medicine
DX: N13.2 Hydronephrosis with renal and ureteral calculous obstruction (principal)
CPT/HCPCS: 74176; 80053; 81001; 85025; 96360; 99283; J7030; A4216

== ENCOUNTER → 2024-07-02 | Outpatient (CLI) | payer OTHER, SELFPAY ==
--- NOTE | 2024-07-02 13:47 | RAD_ITS ---
STUDY: X-RAY - ABDOMEN/PELVIS REASON FOR EXAM: Female, 64 years old. KIDNEY STONE TECHNIQUE: Single AP view of the abdomen / pelvis. COMPARISON: CT scan 06/30/2024. FINDINGS: Normal visualized lung bases. There is moderate diffuse fecal retention, otherwise unremarkable bowel gas pattern. There is no demonstrated free abdominal air. No definite renal or ureteral stones although exam limited by overlying bowel contents. The visualized liver, spleen and kidneys are grossly normal in size and morphology. Normal soft tissue structures. Normal visualized osseous structures. RAD/Abdomen Single View IMPRESSION: Fecal retention. No definite renal or ureteral stones. Electronically Signed: Pepito Plaza MD at 17:38 EST ,
== END | disposition home or self-care (01) ==
LOC: RAD 16:46
PROVIDERS: PCP Family Medicine; Referring Provider Family Medicine; Visit Provider Family Medicine
DX: N20.0 Calculus of kidney (principal)
CPT/HCPCS: 74018

== ENCOUNTER → 2024-07-07 | Outpatient (CLI) | payer OTHER, SELFPAY ==
--- NOTE | 2024-07-07 07:34 | CT_ITS ---
STUDY: CT ABDOMEN AND PELVIS WITHOUT CONTRAST REASON FOR EXAM: Female, 64 years old. Calculus of kidney RADIATION DOSAGE (If Supplied By Facility): CTDIvol = ( 6.36 ) mGy, DLP = ( 314.54 ) mGycm TECHNIQUE: Transaxial images were obtained from the dome of the diaphragm to the symphysis pubis without oral contrast, and without intravenous contrast. Sagittal and coronal images were reconstructed. Individualized dose optimization techniques were used for this CT. COMPARISON: 06/30/2024 FINDINGS: The visualized lung bases are unremarkable. The visualized portions of the heart are within normal limits. Normal liver. Normal gallbladder and extrahepatic biliary system. Normal spleen. Normal pancreas. Normal bilateral adrenal glands. 2 mm obstructing stone at the right ureteral pelvic junction with mild hydronephrosis. Normal left kidney. Normal visualized stomach. Normal small intestine. Normal colon. There is non-visualization of the appendix. Normal abdominal aorta. Normal inferior vena cava. Normal retroperitoneum. Normal urinary bladder. Status post repair of right medially in hernia with mesh. No residual or recurrent hernia. Normal osseous structures. CT/Abdomen/Pelvis without Cont IMPRESSION: 2 mm obstructing stone at the right ureteral pelvic junction with mild hydronephrosis. Electronically Signed: Evan Huntley MD at 13:54 EST ,
== END | disposition home or self-care (01) ==
LOC: CT 07:24
PROVIDERS: PCP Family Medicine; Referring Provider Urology; Visit Provider Urology
DX: N20.0 Calculus of kidney (principal)
CPT/HCPCS: 74176

== ENCOUNTER → 2024-07-22 | Outpatient (CLI) | payer OTHER, SELFPAY ==
--- NOTE | 2024-07-22 08:00 | RAD_ITS ---
INDICATION: CALCULUS OF KIDNEY EXAMINATION/TECHNIQUE: X-RAY - XR Abdomen 1 View COMPARISON: July 02, 2024 FINDINGS: BOWEL GAS PATTERN: Non-obstructive. No bowel or stomach distention. FREE AIR: Not assessed on a single supine view. ORGANOMEGALY: Not seen. CALCIFICATIONS: No abnormal calcifications observed. BONES AND SOFT TISSUES: No acute pathology. There is evidence of prior anterior abdominal wall repair within the right lower abdomen. RAD/Abdomen Single View IMPRESSION: Nonspecific bowel gas pattern. No renal or ureteral calculus identified. Electronically Signed: Marly Pratt MD at 9:13 EST ,
--- NOTE | 2024-07-22 08:38 | EKG12_ITS ---
Test Reason : PREOP Blood Pressure : */* mmHG Vent. Rate : 70 BPM Atrial Rate : 70 BPM P-R Int : 150 ms QRS Dur : 80 ms QT Int : 396 ms P-R-T Axes : 60 63 71 degrees QTcB Int : 427 ms Normal sinus rhythm Normal ECG Reconfirmed by NI WOOD, FAMILIA ([id number]), restaurant expeditor YESSY JEFFRIES ([id number]) on 07/22/2024 12:54:38 PM Referred By: Anjum Lozano Confirmed By: FAMILIA DAN MD
[2024-07-22 09:23] LABS: Hemoglobin 13.2 g/dL (12.0-15.0); Mean Corp Hgb Conc 32.2 g/dL (32-36); Mean Corpuscular Hgb 30.6 pg (27.0-32.0); Mean Corpuscular Volume 95.1 fL (81-99); Mean Platelet Vol. 9.7 fl (6.2-12.0); Platelet Count 322 K/mm3 (150-450); Red Blood Count 4.31 M/mm3 (4.2-5.4); White Blood Count 5.6 K/mm3 (4.4-11.0)
[2024-07-22 09:39] LABS: Anion Gap 3 (5-15); BUN 7 mg/dL (7-18); BUN/Creat Ratio 10.1 RATIO (10-20); Calcium,Total 9.7 mg/dL (8.5-10.1); Chloride 108 mmol/L (98-107); EST Glomerular Filtration Rate 90 mL/min (>60); Est Glom Filt Rate - Afr Amer 109 mL/min (>60); Glucose 91 mg/dL (74-106); Potassium 4.1 mmol/L (3.5-5.1); Sodium Level 141 mmol/L (136-145)
== END | disposition home or self-care (01) ==
PROVIDERS: PCP Family Medicine; Referring Provider Urology; Visit Provider Urology
DX: Z01.818 Encounter for other preprocedural examination (principal); Z01.810 Encounter for preprocedural cardiovascular examination; N20.0 Calculus of kidney
CPT/HCPCS: 36415; 74018; 80048; 85027; 93005

== ENCOUNTER → 2024-08-18 | Outpatient (CLI) | payer OTHER, SELFPAY ==
--- NOTE | 2024-08-18 16:14 | BI_ITS ---
MAMMOGRAPHY - BILATERAL SCREENING REASON FOR EXAM: Female, 64 years old. Routine annual screening examination. PERTINENT HISTORY: Grandmother with breast cancer. Prior right ultrasound guided breast biopsies. TECHNIQUE: Digital bilateral breast mary kate (3D mammographic acquisition) in the CC and MLO projections. 2-D mediolateral oblique (MLO) and craniocaudad (CC) views of both breasts were obtained. CAD: Full Field Digital Mammography with Computer Added Detection was performed. COMPARISON: Comparison is made with prior study dated August 16, 2023 and August 14, 2022. FINDINGS: Breast Composition: There are scattered areas of fibroglandular density. There are no dominant masses or suspicious calcifications. Once again, a tissue clip marker is seen in the upper lateral aspect of the right breast. Stable bilateral fat containing axillary lymph nodes. No other significant abnormalities are identified. There has been no significant change since the prior study. BI/SCRN MAMM (CAD)W/MARY KATE BILAT IMPRESSION: Stable bilateral screening mammogram. Yearly follow-up mammogram recommended. (A) ASSESSMENT CATEGORY: BIRADS Category 2: Benign. A letter regarding these results will be sent to the patient by the facility within 30 days. Approximately 10% of breast cancers are not detected by mammography. A normal mammogram should not delay biopsy of a clinically suspicious abnormality. [id number] Electronically Signed: Kj Lutz MD at 8:37 EST ,
== END | disposition home or self-care (01) ==
LOC: OPBI 16:13
PROVIDERS: PCP Family Medicine; Referring Provider Family Medicine; Visit Provider Family Medicine
DX: Z12.31 Encounter for screening mammogram for malignant neoplasm of breast (principal)
CPT/HCPCS: 77063; 77067

== ENCOUNTER 2024-09-22 10:30 | Outpatient (RCR) | payer OTHER, SELFPAY ==
--- NOTE | 2024-08-19 15:05 | HP.PTEVAL ---
Patient's Visit Information Visit Information Visit Information: RAFEAL FRIAS is a 64 year old F referred to Physical Therapy by JUAN MCNAMARA with a diagnosis of R KNEE MED SVETA LIG SPRAIN, ARTHRITIS & CONCERN FOR MED MENISCUS TEAR. Date of Evaluation: 08/19/24 Physical Therapist: Alejandrina Hyman, PT, Cert MDT Visit Plan Frequency: 2x /Week Duration: 6-8 Plan: R KNEE US, STM, ROM, STRETCHING AND STRENGTHENING IN OPEN AND CLOSED CHAIN TO HELP MEET SET GOALS. HEP INST. PATIENT HAS AN [employer] MEMBERSHIP SHE CAN USE TO SUPPLEMENT PHYSICAL THERAPY EXERCISE INDEP'LY WITH INSTRUCTION. Subjective Subjective: Work/Leisure: RETIRED Present symptoms: R MEDIAL KNEE PAIN Present since: 07/31/24 Pain Scale: WORST 4/10, LEAST 0/10 Currently: 0/10 IN SITTING. Is it getting better, worse or staying the same: GETTING BETTER. 60 TO 70% BETTER SINCE SEEING SPECIALIST 08/03/24 Commenced as a result of: TWISTED R FALLING WHILE SKIIING AT SNOW TRAILS. DENIES CLICKING, GRINDING AND POPPING. DENIES DISLOCATION. DENIES NUMBNESS AND TINGLING. REPORTS OCCASSIONAL GIVING OUT WHEN PAIN HIT INTENSELY. Symptoms at onset: A LOT MORE PAIN AND SWELLING IN THE R KNEE Worse: ROLLING OVER IN BED, R SDLY, GETTING IN/OUT OF CAR STIFF ON STEPS Better: REST, ICE, ELEVATION, OTC BRACE AND SLEEVE, WALKING IN POOL, AND MELOXICAM FOR THE PAST 2 WKS OR SO IN [place]. Gait: GUARDED AND SLOWER THAN NORMAL. MODIFIED ON STEPS DUE TO PAIN AND MOSTLY STIFFNESS Imaging: MILD MEDIAL COMPARTMENT NARROWING, NO ACUTE BONY PROCESS PER JUAN MCNAMARA LINSEED OIL PRESS TENDER-ARCHAEOLOGIST'S REPORT BROUGHT BY PATIENT DATED 08/03/24. PMH/Recent major surgery: HIGH CHOLESTEROL, KIDNEY STONES, HYSTERECTOMY, HENIA REPAIR Objective Objective: THIS PATIENT AMBULATES INDEP'LY INTO PT WITHOUT ANY AD'S WEARING AN OTC R KNEE BRACE WITH A MILD LIMP AND WALKING ON A SLIGHTLY BENT R KNEE. NO LOB. JUANCHO LE LIGHT TOUCH SENSATION IS GROSSLY INTACT AND SYMMETRICAL. SHE HAS VERY MILD MEDIAL R KNEE EDEMA. SHE HAS TENDERNESS WITH PALPATION ALONG THE R MCL. R KNEE AROM IN LYING -9-0-120 degrees WITH PAIN INTO FLEXION AND EXTENSION. SEATED SHE HAS A 14 DEG EXTENSOR LAG. R LE STRENGTH: HIP 3+/5, KNEE EXT 2+/5, KNEE FLEX 3-/5, ANKLE 5/5. LLE STRENGTH AND ROM - WNL. STEPS: PATIENT ABLE TO ASCEND STEPS RECIP W/ONE HR BUT NOT WITHOUT SIGNIFICANT DEVICATION. DESCENDS WITH STEP TO PATTERN AND ONE HR. TREATMENT: GAIT TRAINING ON STEPS FOR STEP TO PATTERN UP AND DOWN WITH HR. NO PASCALE. CONTINUE POOL WALKING. INSTRUCTED PATIENT IN 4 WAYS ASSISTED SLR'S 2X5, 2 TIMES A DAY TOLERATED ( TO ASSIST NEEDED). ALSO INSTRUCTED IN PASSIVE EXTENTION STRETCHING AND HEEL SLIDES TO GENTLY WORK ON INCREASING FLEXION/EXTENSION ROM. CONT RICE FOR INFLAMMATION. Special Tests R Knee Pablo - Meniscus: Positive R Knee Amanda - ACL: Negative R Knee Anterior Drawer - ACL: Negative R Knee Posterior Drawer - PCL: Negative R Knee Valgus - MCL: Positive R Knee Varus - LCL: Negative R Knee Patellar Grind - PFS: Positive Balance/Special Test Scores Lower Extremity Functional Score: 52 Goals Goal 1:: PATIENT WILL REPORT 0-2/10 R KNEE PAIN WITH ALL ACTIVITIES Goal Time Frame: 6-8 Weeks Goal 2:: PATIENT WILL HAVE INCREASED R KNEE ROM TO AT LEAST 0-130 DEG FLEXION. Goal Time Frame: 6-8 Weeks Goal 3:: PATIENT WILL HAVE INCREASED RLE STRENGTH TO 5/5 THROUGHT ALLOWING FOR INCREASED STABILITY WITH ALL ACTIVITIES. Goal Time Frame: 6-8 Weeks Goal 4:: PATIENT WILL BE ABLE TO WALK AND NEGOTIATE STEPS WITH 1 HR WITH RECIPROCAL PATTERN WITHOUT LIMITATIONS. Goal Time Frame: 6-8 Weeks Goal 5:: INDEP HEP Goal Time Frame: 6-8 Weeks Rehabilitation Potential Physical Therapy Diagnosis: R LE PAIN, STIFFNESS AND WEAKNESS. IMPAIRED GAIT, ADL'S AND RECREATIONAL ACTIVITIES. Rehabilitation Potential: Good Anticipated Interventions Patient/Client Instruction: Educate patient on: Condition, Plan of Care and Risk Factors For the Purpose of:: To improve self management Therapeutic Exercise to Include: Strength training, Agility training, Body mechanics, Flexibilty training, Gait and locomotor training, Neuromotor development, In an aquatic setting, Passive ROM and Active ROM For the Purpose of:: To decrease pain, To decrease swelling/inflammation, To increase ROM, To improve nutrient delivery to tissue, To improve muscle performance and motor function, To increase tolerance to activity/condition/position, To improve ability of physical actions for home/community/work/leisure, To improve gait and locomotor functions, To decrease soft tissue restriction, To increase flexibility/ROM and To improve self management Manual Therapy Techniques to Include: Mobilization and Soft tissue mobilization For the Purpose of:: To decrease pain, To decrease swelling/inflammation, To improve nutrient delivery to tissue and To improve muscle performance and motor function Cryotherapy (ice pack, ice massage): Yes Ultrasound (thermal/non thermal): Yes For the Purpose of:: To decrease pain, To decrease swelling/inflammation and To improve nutrient delivery to tissue Text: Thank you for the opportunity to evaluate your patient. For Medicare and Medicare HMO plans, please review the plan of care and approve it. It will need to be FAXED BACK to us at [phone] for Medicare purposes. For Medicare only, by signing this I certify the plan of care. Please let me know if there are questions or concerns regarding this plan of care. Physician Signature: Date:
--- NOTE | 2024-09-08 14:41 | HP.PTREVAL ---
Re-Evaluation Intro: JUAN MCNAMARA, It has been my pleasure to treat RAFAEL FRIAS over the last 6 visits for R KNEE MED SVETA LIG SPRAIN, ARTHRITIS & CONCERN FOR MED MENISCUS TEAR. Please see the progress note below for an update on the physical therapy plan of care! Subjective Subjective: PATIENT REPORTS HER MOBILITY IS A LOT BETTER SINCE STARTING THERAPY. SHE REPORTS STEPS ARE GOING MUCH BETTER, GETTING IN AND OUT OF BED IS EASIER, GETTING IN AND OUT OF THE CAR IS GOING BETTER TOO. SHE REPORT SLEEP IS STILL A PROBLEM - THE PAIN IS WAKING HER UP AT NIGHT. SHE REPORTS PAIN IS RANGING 0/10 TO 3/10. NO LONGER TAKING ANY PAIN MEDICATION. STOPPED MELOXICAM WHEN IT RAN OUT 09/05/24. SHE ALSO REPORTS R MEDIAL KNEE PAIN WITH TWISTING MOTIONS, TRYING TO FLUTTER KICK IN THE POOL, WITH SLR'S AND ANY UNSTABLE SITUATIONS. HAS NOT TRIED RUNNING, SQUATTING, PASCALE OR SKIING. OTHER: PATIENT NOW REPORTING H/O OF FALL WHILE HIKING IN APR 2024 ON R KNEE. DURING THAT SAME TRIP TO [place] SHE HAD A SECOND FALL DOWN ON BOTH KNEES. SHE DENIES TREATMENT OR TESTING OF KNEES AT THAT TIME. Objective Objective/Function: PATIENT WAS SEEN TODAY FOR RE-ASSESSMENT OF PROGRESS TOWARD THE SET PT GOALS AND THE NEED FOR FURTHER PHYSICAL THERAPY VS READINESS FOR DISCHARGE. SHE IS MAKING STEADY PROGRESS WITH PHYSICAL THERAPY BUT STILL HAS SIGNIFICANT TIGHTNESS, WEAKNESS AND POSITIVE FINDINGS IN THE R LE INDICATING PATIENT MAY BENEFIT FROM FURTHER IMAGING. UPON EXAM TODAY: HIS PATIENT AMBULATES INDEP'LY INTO PT WITHOUT ANY GROSS DEVIATIONS NOTED. SHE IS ABLE TO ASCEND AND DESCEND STEPS RECIPROCALLY WITH ZERO TO ONE HR WITHOUT DEVIATION OR LIMITATION. JUANCHO LE LIGHT TOUCH SENSATION IS GROSSLY INTACT AND SYMMETRICAL. NO PALPABLE R KNEE EDEMA. SHE CONTINUES TO HAVE TENDERNESS WITH PALPATION ALONG THE R MCL REGION. R KNEE AROM IN LYING -0-0-137 degrees WITH C/O FULL OR COTTON TYPE PAIN FEELING IN KNEE INTO APPROX LAST 15 DEGREES OF AVAILABLE FLEXION ROM (COMPARED TO L KNEE 0-0-146 degrees). SEATED SHE HAS A 0 DEG EXTENSOR LAG NOW. STRENGTH: HIP FLEX R 20, L 28.4 LBS, HIP ABD R 21.7, L 29.9 LBS KNEE EXT R 35.4, L 42.4 LBS KNEE FLEX R 31.8, L 22.9 LBS (H/O L LE SCIATICA). JUANCHO ANKLES 5/5. Special Tests R Knee Pablo - Meniscus: Positive R Knee Valgus - MCL: Positive R Knee Varus - LCL: Negative R Knee Patellar Grind - PFS: Positive Plan Plan Plan: PATIENT PLANS TO CALL PHYSICIAN TO SEE IF SHE CAN GO AHEAD WITH MRI AND WANTS TO KEEP SCHEDULED PT APPOINTMENTS. CONT PER ORIG POC: R KNEE US, STM, ROM, STRETCHING AND STRENGTHENING IN OPEN AND CLOSED CHAIN TO HELP MEET SET GOALS. HEP INST. PATIENT HAS AN [employer] MEMBERSHIP SHE CAN USE TO SUPPLEMENT PHYSICAL THERAPY EXERCISE INDEP'LY WITH INSTRUCTION. Balance/Gait/Functional tests Balance/Special Test Scores Lower Extremity Functional Score: 60 Goals Goals Goal 1:: PATIENT WILL REPORT 0-2/10 R KNEE PAIN WITH ALL ACTIVITIES Goal Time Frame: 6-8 Weeks Goal Progress: Progressing Goal 2:: PATIENT WILL HAVE INCREASED R KNEE ROM TO AT LEAST 0-130 DEG FLEXION - Goal Met New Goal - Patient will have R knee ROM symmetrical with L Knee. Goal Time Frame: 6-8 Weeks Goal 3:: PATIENT WILL HAVE INCREASED RLE STRENGTH TO 5/5 THROUGHT ALLOWING FOR INCREASED STABILITY WITH ALL ACTIVITIES. Goal Time Frame: 6-8 Weeks Goal Progress: Progressing Goal 4:: PATIENT WILL BE ABLE TO WALK AND NEGOTIATE STEPS WITH 1 HR WITH RECIPROCAL PATTERN WITHOUT LIMITATIONS. (Met for level surfaces) Goal Time Frame: 6-8 Weeks Goal Progress: Progressing Goal 5:: INDEP HEP Goal Time Frame: 6-8 Weeks Goal Progress: Progressing Anticipated Interventions Anticipated Interventions Patient/Client Instruction: Educate patient on: Condition, Plan of Care and Risk Factors For the Purpose of:: To improve self management Therapeutic Exercise to Include: Strength training, Agility training, Body mechanics, Flexibilty training, Gait and locomotor training, Neuromotor development, In an aquatic setting, Passive ROM and Active ROM For the Purpose of:: To decrease pain, To decrease swelling/inflammation, To increase ROM, To improve nutrient delivery to tissue, To improve muscle performance and motor function, To increase tolerance to activity/condition/position, To improve ability of physical actions for home/community/work/leisure, To improve gait and locomotor functions, To decrease soft tissue restriction, To increase flexibility/ROM and To improve self management Manual Therapy Techniques to Include: Mobilization and Soft tissue mobilization For the Purpose of:: To decrease pain, To decrease swelling/inflammation, To improve nutrient delivery to tissue and To improve muscle performance and motor function Cryotherapy (ice pack, ice massage): Yes Ultrasound (thermal/non thermal): Yes For the Purpose of:: To decrease pain, To decrease swelling/inflammation and To improve nutrient delivery to tissue Re-Evaluation Ending Re-evaluation ending: Please do not hesitate to contact me at [phone] by phone or if you have questions or concerns regarding this new plan of care! Sincerely, Alejandrina Hyman, PT, Cert MDT
--- NOTE | 2024-09-24 09:58 | HP.PT.NRP ---
Patient Information Patient Information: RAFAEL FRIAS was seen in my office for initial evaluation on 08/19/24. The following Plan of Care was established for this patient: POC Established Initial Frequency: 2x /Week Initial Duration: 6-8 Anticipated Interventions Patient/Client Instruction: Educate patient on: Condition, Plan of Care and Risk Factors For the Purpose of:: To improve self management Therapeutic Exercise to Include: Strength training, Agility training, Body mechanics, Flexibilty training, Gait and locomotor training, Neuromotor development, In an aquatic setting, Passive ROM and Active ROM For the Purpose of:: To decrease pain, To decrease swelling/inflammation, To increase ROM, To improve nutrient delivery to tissue, To improve muscle performance and motor function, To increase tolerance to activity/condition/position, To improve ability of physical actions for home/community/work/leisure, To improve gait and locomotor functions, To decrease soft tissue restriction, To increase flexibility/ROM and To improve self management Manual Therapy Techniques to Include: Mobilization and Soft tissue mobilization For the Purpose of:: To decrease pain, To decrease swelling/inflammation, To improve nutrient delivery to tissue and To improve muscle performance and motor function Cryotherapy (ice pack, ice massage): Yes Ultrasound (thermal/non thermal): Yes For the Purpose of:: To decrease pain, To decrease swelling/inflammation and To improve nutrient delivery to tissue Last Seen Last Seen: This patient was last seen in our office 09/22/24. Pertinent comments regarding their Physical therapy will appear below: It has been my pleasure to see this patient for a total of 9 visits. This patient has decided not to return to Physical Therapy for more visits and is appropriate to return to MD for further follow-up as needed. Patient called and spoke with this PT 09/23/24 and reports she got good news from her MRI results. She states her meniscus looks good but she has a slight tear in her ACL. She reports Ortho told her it will be a long frustrating recovery but not surgical. States she isn't supposed to do any twisting and no skiing but can continue in line exercise that she has been doing. She is Leaving for vacation in a week. Would like to cancel remaining PT appointments and continue on her own. At this point I will be discontinuing this patient from physical therapy. I would be happy to see this patient again in the future if found appropriate by the physician. Thank you! Alejandrina Hyman PT, Cert MDT Balance/Gait/Functional tests Balance/Special Test Scores Lower Extremity Functional Score: 60
== END 2024-09-22 19:00 | disposition home or self-care (01) ==
LOC: PT 10:30
PROVIDERS: PCP Family Medicine
DX: M13.861 Other specified arthritis, right knee (principal); S83.91XD Sprain of unspecified site of right knee, subsequent encounter
CPT/HCPCS: 97110; 97162; 97530

== ENCOUNTER → 2025-06-12 | Outpatient (CLI) | payer MEDICARE, SELFPAY ==
[2025-06-12 12:04] LABS: Hematocrit 40.1 % (37-47); Hemoglobin 13.3 g/dL (12.0-15.0); Immature Granulocytes Count 0.010 X10^3/uL (0.0-0.0); Mean Corp Hgb Conc 33.2 g/dL (32-36); Mean Corpuscular Volume 94.1 fL (81-99); Mean Platelet Vol. 10.0 fl (6.2-12.0); NRBC Flagged by Analyzer 0 % (0-5); Platelet Count 275 K/mm3 (150-450); RBC Distribution Width CV 12.8 % (11.6-14.6); RBC Distribution Width SD 43.9 fl (35.1-43.9); Red Blood Count 4.26 M/mm3 (4.2-5.4); White Blood Count 7.0 K/mm3 (4.4-11.0)
[2025-06-12 12:19] LABS: AST(SGOT) 24 U/L (<=31); Alanine Aminotransfer ALT/SGPT 21 U/L (<=34); Albumin, Serum 4.5 g/dL (3.4-4.8); Alkaline Phosphatase 65 U/L (35-104); Anion Gap 9 (5-15); BUN 21 mg/dL (4-19); BUN/Creat Ratio 32.3 RATIO (10-20); Calcium,Total 9.7 mg/dL (7.6-11.0); Carbon Dioxide 27.0 mmol/L (21.0-32.0); Chloride 105 mmol/L (98-108); Cholesterol 163 mg/dL (<=200); Globulin 3.0 g/dL (2.2-4.2); Glucose 103 mg/dL (70-99); Low Density Lipoprotein Calc. 85 mg/dL; Potassium 4.2 mmol/L (3.3-5.1); Triglycerides 207 mg/dL; Very Low Density Lipoprotein 41 mg/dL (5-40); cholesterol:hdl ratio screen 3.80
== END | disposition home or self-care (01) ==
LOC: LAB 10:58
PROVIDERS: PCP Family Medicine; Referring Provider Family Medicine; Visit Provider Family Medicine
DX: Z00.00 Encounter for general adult medical examination without abnormal findings (principal); E78.5 Hyperlipidemia, unspecified
CPT/HCPCS: 36415; 80053; 80061; 85025

== ENCOUNTER → 2025-06-29 | Outpatient (CLI) | payer MEDICARE, SELFPAY ==
--- NOTE | 2025-06-29 08:52 | BD_ITS ---
PROCEDURE: DEXA BONE DENSITY STUDY 06/29/2025 REASON FOR EXAM: F, age 65 y/o . Postmenopausal. TECHNIQUE: Procedure Code: BDDBD Modality: DX Procedure: DEXA BONE DENSITY STUDY COMPARISON: September 20, 2015. FINDINGS: BMD and T-SCORES Lumbar spine: 0.742 g/cm2, T-score -2.8 Levels: L1 through L4 Change from prior: Loss of 8.7%. Left femoral neck: 0.603 g/cm2, T-score -2.2 Femoral neck comparison data not recommended for monitoring change. Left total hip: 0.746 g/cm2, T-score -1.6 Change from prior: Loss of 1.3%. Right femoral neck: 0.648 g/cm2, T-score -1.8 Femoral neck comparison data not recommended for monitoring change. Right total hip: 0.741 g/cm2, T-score -1.7 Change from prior: Loss of 3.9%. The World Health Organization has defined the following categories based on bone density: Normal bone density: T-score equal to or greater than -1.0 Osteopenia: T-score between -1.0 and -2.5 Osteoporosis: T-score equal to or less than -2.5 FRAX (or Comparable) Fracture Risk Assessment: 10 Year Probability of Fracture: Major Osteoporotic Fracture: 11% Hip Fracture: 1.8% (Note: FRAX is not to be reported in setting of normal range bone density, osteoporosis on DEXA, known history of osteoporosis, prior osteoporotic hip or vertebral fracture, or for any patient undergoing pharmacological treatment for bone loss.) The National Osteoporosis Foundation (NOF) recommends pharmacological treatment for patients with a FRAX 10-year risk of 3% or higher for a hip fracture, or 20% or higher for a major osteoporotic fracture, to prevent osteoporosis and reduce fracture risk. The patient does meet the pharmacological treatment recommendations for prevention of osteoporosis. BD/Dexa Bone Density Study IMPRESSION: OSTEOPENIA. Recommend follow-up as clinically warranted. Reading Location: [id number]
--- OUTSIDE RECORDS SUMMARY | 2025-06-29 09:39 | XMS RPT_ITS | CCD ---
Author Organization [facility] Care Team Providers Care Estate Attorney Name Role Phone Donaldo Chan FRIEND Primary Care Provider Kristal Maciel Primary Care Provider [phone] DR JUANA WEAVER DO Primary Care Physician NOHEMI CARRASCO, DR JUANA Rudolph Primary Care Physician CLIFF WOOD, DR ANJUM CHAVEZ Attending Conrad delio WEAVER DO, DR JUANA Rudolph Primary Care Unavailable Unavailable Primary Care Provider UnavailJULI Latham Attending Unavailable Isael Roberts Attending Unavailable Miedel, Mojgan Primary Care Unavailable Cliff, Jose Referring Unavailable Miedel, Mojgan Primary Care Unavailable Miedel, Mojgan Attending Unavailable Miedel, Mojgan Referring Unavailable Miedel, Mojgan Primary Care Unavailable Miedel, Mojgan Attending Unavailable Miedel, Mojgan Referring Unavailable Miedel, Mojgan Primary Care Unavailable CliffAnjum Attending Unavailable CliffAnjumJose Referring Unavailable Miedel, Mojgan Primary Care Unavailable Miedel, Mojgan Attending Unavailable Miedel, Mojgan Referring Unavailable Miedel, Mojgan Primary Care Unavailable ISADORA HOWELL Attending Unavailable ISADORA HOWELL Referring Unavailable CliffAnjum Referring Unavailable Miedel, Mojgan Primary Care Unavailable CliffAnjum Attending Unavailable Miedel, Mojgan Primary Care Unavailable Cliff Jose Attending Unavailable Cliff, Jose Referring Unavailable Jesse Schwab Attending Unavailable Miedel, Mojgan Primary Care Unavailable Miedel, Mojgan Primary Care Unavailable Miedel, Mojgan Attending Unavailable Miedel, Mojgan Referring Unavailable Allergies Allergy Classification Reported Allergen(s) Allergy Type Date of Onset Reaction(s) Facility Adhesive Tape (1 source) Adhesive Tape Substance Allergy 06-26-20 05 Rash [place] Work Phone: Cinnamon Bark (1 source) Cinnamon Bark Drug Allergy 06-26-20 05 Intolerance [place] Work Phone: Lactose (1 source) Lactose Drug Allergy 12-01-19 09 [place] Work Phone: Opioid Agonists (1 source) Codeine Drug Allergy 06-26-20 05 Vomiting [place] Work Phone: PHENobarbital (1 source) PHENobarbital Drug Allergy 06-26-[address] [facility] Work Phone: (5 sources) Adhesive agent; Translations: [adhesive] Propensity to adverse reactions 03-27-20 22 [facility] (7 sources) Codeine; Translations: [CODEINE] Drug Allergy 06-26-20 05 Vomiting [facility] (7 sources) Lactose; Translations: [LACTOSE] Drug Allergy 12-01-19 09 Nausea/Vom/Diar tigist [facility] (7 sources) PHENobarbital; Translations: [PHENOBARBITAL] Drug Allergy 06-26-20 05 [facility] (5 sources) cat dander; Translations: [cat dander] Allergy to substance 07-01-20 17 Inflammation of lung [facility] (3 sources) Adhesive Tape; Translations: [ADHESIVE TAPE (ROSINS)] Propensity to adverse reactions to substance 06-26-[address] [facility] Work Phone: (3 sources) Cinnamon Bark; Translations: [CINNAMON BARK] Drug Allergy 06-26-20 05 Intolerance [place] (1 source) Codeine Drug Allergy 06-30-20 24 [facility] Repository (1 source) Lactose Drug Allergy 06-30-20 24 [facility] (1 source) PHENobarbital Drug Allergy 06-30-20 24 [facility] Repository Medications Current Medications Medication Drug Class(es) Dates Sig (Normalized) Sig (Original) aspirin 81 mg delayed release oral tablet (7 sources) Platelet Aggregation Inhibitor, Nonsteroidal Anti-inflammatory Drug Start: 11-18-2013 take 81 mg by mouth once daily Aspirin Active 81 MG PO DAILY@0800 November 17, 2013 11:00pm Comment on above: Take 81 mg by mouth once daily. calcium carbonate 500 mg chewable tablet (7 sources) Start: 11-18-2013 take 2 tablets by mouth twice daily Calcium Carbonate Active 2 TABLET PO TWICE A DAY November 17, 2013 11:00pm Start: 2009 CALCIUM CARBON ATE 500 MG (1,250 MG) CHEWABLE TAB take four tabs daily. 0 2009 Active Comment on above: take four tabs daily . cholecalciferol 0.05 mg oral tablet (7 sources) Vitamin D Start: 11-19-19 14 take 1 tablet by mouth twice daily Cholecalciferol (Vitamin D3) (Vitamin D3) 2,000 UNIT tablet Active 1 TABLET PO TWICE A DAY November 17, 2013 11:00pm Cholecalciferol, Vitamin D3, (VITAMIN D-3) 2,000 unit cap Indications: Change in bowel habits Take by mouth. Active Comment on above: Take by mouth. docusate sodium 100 mg oral capsule (4 sources) Start: 7 take 1 capsule by mouth twice daily as needed Docusate Sodium (Colace) 100 MG capsule Active 100 MG PO TWICE DAILY NEEDED 60 July 01, 2017 12:00am estradiol 0.1 mg/ml vaginal cream (4 sources) Estrogen Start: 7 Estradiol (Estrace Vaginal Cream) 42.5 GM cream Active 1 DOSE VAGINAL MOTH April 01, 2017 11:00pm estrogens, conjugated (fdc) 0.625 mg/ml vaginal cream (3 sources) Estrogen Start: 4 PREMARIN vaginal cream Indications: Change in bowel habits 07/21/2014 Active ketoconazole 20 mg/ml topical cream (7 sources) Azole Antifungal Start: 4 Ketoconazole Active 1 APPLIC TOPICAL DAILY November 17, 2013 11:00pm Start: 06-26-2005 NIZORAL 2 % TO PICAL CREAM 0 06/26/2005 Active medroxyPROGESTERone acetate 10 mg oral tablet (7 sources) Progestin Start: 09-09-2014 medroxyPROGEST ERone (PROVERA, CYCRIN) 10 mg tablet Indications: Change in bowel habits 09/09/2014 Active Start: 11-18-2013 End: 07-01-2017 take 10 mg by mouth once daily Medroxyprogesterone Discontinued 10 MG PO DAILY November 17, 2013 11:00pm July 01, 2017 7:27am metroNIDAZOLE 0.01 mg/mg topical gel (3 sources) Nitroimidazole Antimicrobial Start: 06-26-2005 METROGEL 1 % TOPICAL 0 06/26/2005 Active MULTI-VITAMIN ORAL (3 sources) MULTI-VITAMIN OR AL Indications: Change in bowel habits Take by mouth. Active MULTI-VITAMIN OR AL Indications: Change in bowel habits Take by mouth. 0 Active Comment on above: Take by mouth. Multivitamin With Folic Acid (Thera) 1 TABLET tablet (4 sources) Start: 11-18-2013 take 1 tablet by mouth once daily Multivitamin With Folic Acid (Thera) 1 TABLET tablet Active 1 TABLET PO DAILY November 18, 2013 12:00am Start: 11-18-2013 take 1 tablet by juve th once daily Multivitamin With Folic Acid (Thera) 1 TABLET tablet Active 1 TABLET PO DAILY November 17, 2013 11:00pm oxyCODONE hydrochloride 5 mg oral tablet (4 sources) Opioid Agonist Start: 07-01-2017 take 5-10 mg by mouth every six hours as needed Oxycodone Active 5 - 10 MG PO EVERY 6 HOURS NEEDED July 01, 2017 12:00am vitamin b12 0.5 mg oral tablet (4 sources) Vitamin B12 Start: 04-08-2017 take 1000 ug by mouth once daily Cyanocobalamin (Vitamin B-12) Active 1000 MCG PO DAILY@0800 April 07, 2017 11:00pm Problems Active Problems Problem Classification Problem Date Documented Date Episodic/Chronic Disorders of lipid metabolism (1 source) Hyperlipidemia, unspecified; Translations: [Hyperlipidemia, unspecified] Onset: 06-12-2025 Chronic Diverticulosis and diverticulitis (3 sources) Diverticulitis of large intestine without perforation or abscess without bleeding; Translations: [Diverticulitis of colon (without mention of hemorrhage)] Onset: 12-24-2008 12-24-2008 Chronic Nonmalignant breast conditions (4 sources) Breast lump; Translations: [Unspecified lump in the right breast, unspecified quadrant] 09-12-2016 Episodic Osteoporosis (1 source) Age-related osteoporosis without current pathological fracture; Translations: [Age-related osteoporosis without current pathological fracture] Onset: 06-17-2025 Chronic Past or Other Problems Problem Classification Problem Date Documented Da te Episodic/Chronic Abdominal hernia (3 sources) Inguinal hernia; Translations: [Unilateral inguinal hernia, without obstruction or gangrene, not specified as recurrent] Onset: 11-30-2008 11-30-2008 Episodic Abdominal pain (4 sources) Generalized abdominal pain; Translations: [Generalized abdominal pain] Onset: 11-30-2008 11-30-2008 Episodic Calculus of urinary tract (2 sources) Calculus of kidney; Translations: [Calculus of kidney] Onset: 07-14-2024 Episodic Lymphadenitis (3 sources) Lymphadenopathy; Translations: [Enlarged lymph nodes, unspecified] Onset: 06-26-2005 06-26-2005 Episodic Other gastrointestinal disorders (1 source) Alteration in bowel elimination; Translations: [Change in bowel habit] Onset: 09-29-2014 09-29-2014 Episodic Other gastrointestinal disorders (2 sources) Altered bowel function; Translations: [Change in bowel habit] Onset: 09-29-2014 09-29-2014 Episodic Other screening for suspected conditions (not mental disorders or infectious disease) (2 sources) Encounter for screening for malignant neoplasm of colon; Translations: [Encounter for screening mammogram for malignant neoplasm of breast] Onset: 09-09-2024 Episodic Residual codes; unclassified (3 sources) Amnesia; Translations: [Other amnesia] Onset: 07-31-2007 07-31-2007 Episodic Results Test Name Value Interpretation Reference Range Facility CBC W/Diff, Automatedon 11-0 Absolute Lymph 1.81 X10 3/uL Normal 0.83-4.51 [facility] Comment on above: Performed By: #### L 100.0100, L500.4050, L500.4100 ####[facility] [address] [place], [address] Absolute Neut 4.3 X10 3/uL Normal 2.0-7.7 [facility] Comment on above: Performed By: #### L 100.0100, L500.4050, L500.4100 ####[facility] [address] [place], [address] Basophils/100 WBC (Bld) 0.6 % Normal 0-1 [facility] Comment on above: Performed By: #### L 100.0100, L500.4050, L500.4100 ####[facility] [address] [place], [address] Eosinophils/100 WBC (Bld) 3.3 % Normal 0-5 [facility] Comment on above: Performed By: #### L 100.0100, L500.4050, L500.4100 ####[facility] [address] [place], [address] Erythrocyte distribution width (RBC) [Ratio] 12.8 % Normal 11.6-14.6 [facility] Comment on above: Performed By: #### L 100.0100, L500.4050, L500.4100 ####[facility] [address] [place], [address] Hematocrit (Bld) [Volume fraction] 40.1 % Normal 37-47 [facility] Comment on above: Performed By: #### L 100.0100, L500.4050, L500.4100 ####[facility] [address] [place], [address] Hemoglobin (Bld) [Mass/Vol] 13.3 g/dL Normal 12.0-15.0 [facility] Comment on above: Performed By: #### L 100.0100, L500.4050, L500.4100 ####[facility] [address] [place], [address] IG% 0.100 Normal 0.0-0.9 [facility] Comment on above: Result Comment: IG% - Immature Granulocytes (promyelocytes, myelocytes and metamyelocytes) > 1% indicates that a LEFT SHIFT is Present. Performed By: #### L 100.0100, L500.4050, L500.4100 ####[facility] [address] [place], [address] Lymphocytes/100 WBC (Bld) 25.9 % Normal 19-41 [facility] Comment on above: Performed By: #### L 100.0100, L500.4050, L500.4100 ####[facility] [address] [place], [address] MCH (RBC) [Entitic mass] 31.2 pg Normal 27.0-32.0 [facility] Comment on above: Performed By: #### L 100.0100, L500.4050, L500.4100 ####[facility] [address] [place], [address] MCHC (RBC) [Mass/Vol] 33.2 g/dL Normal 32-36 [facility] Comment on above: Performed By: #### L 100.0100, L500.4050, L500.4100 ####[facility] [address] [place], [address] MCV (RBC) [Entitic vol] 94.1 fL Normal 81-99 [facility] Comment on above: Performed By: #### L 100.0100, L500.4050, L500.4100 ####[facility] [address] [place], [address] Monocytes/100 WBC (Bld) 8.6 % Normal 0-10 [facility] Comment on above: Performed By: #### L 100.0100, L500.4050, L500.4100 ####[facility] [address] [place], [address] Neutrophils/100 WBC (Bld) 61.5 % Normal 47-70 [facility] Comment on above: Performed By: #### L 100.0100, L500.4050, L500.4100 ####[facility] [address] [place], [address] Nucleated RBC (Bld) [#/Vol] 0 10*3/uL Normal 0-5 [facility] Comment on above: Performed By: #### L 100.0100, L500.4050, L500.4100 ####[facility] [address] [place], [address] Platelet mean volume (Bld) [Entitic vol] 10.0 fL Normal 6.2-12.0 [facility] Comment on above: Performed By: #### L 100.0100, L500.4050, L500.4100 ####[facility] [address] [place], [address] Platelets (Bld) [#/Vol] 275 10*3/uL Normal 150-450 [facility] Comment on above: Performed By: #### L 100.0100, L500.4050, L500.4100 ####[facility] [address] [place], [address] RBC (Bld) [#/Vol] 4.26 10*6/uL Normal 4.2-5.4 [facility] Comment on above: Performed By: #### L 100.0100, L500.4050, L500.4100 ####[facility] [address] [place], [address] RDW SD 43.9 fl Normal 35.1-43.9 [facility] Comment on above: Performed By: #### L 100.0100, L500.4050, L500.4100 ####[facility] [address] [place], [address] WBC (Bld) [#/Vol] 7.0 10*3/uL Normal 4.4-11.0 [facility] Comment on above: Performed By: #### L 100.0100, L500.4050, L500.4100 ####[facility] [address] [place], [address] Comprehensive Metabolic Prof ilon 06-12-2025 Albumin [Mass/Vol] 4.5 g/dL Normal 3.4-4.8 [facility] Comment on above: Performed By: #### L 100.0100, L500.4050, L500.4100 ####[facility] [address] [place], [address] Albumin/Globulin [Mass ratio] 1.5 {ratio} Normal 0.9-2.4 [facility] Comment on above: Performed By: #### L 100.0100, L500.4050, L500.4100 ####[facility] [address] [place], [address] ALK PHOS 65 U/L Normal 35-104 [facility] Comment on above: Performed By: #### L 100.0100, L500.4050, L500.4100 ####[facility] [address] [place], [address] ALT [Catalytic activity/Vol] 21 U/L Normal <=34 [facility] Comment on above: Performed By: #### L 100.0100, L500.4050, L500.4100 ####[facility] [address] [place], [address] AST [Catalytic activity/Vol] 24 U/L Normal <=31 [facility] Comment on above: Performed By: #### L 100.0100, L500.4050, L500.4100 ####[facility] [address] [place], [address] Bilirubin [Mass/Vol] 0.58 mg/dL Normal 0.00-1.30 [facility] Comment on above: Performed By: #### L 100.0100, L500.4050, L500.4100 ####[facility] [address] [place], [address] BUN/CRE 32.3 RATIO High 10-20 [facility] Comment on above: Performed By: #### L 100.0100, L500.4050, L500.4100 ####[facility] [address] [place], [address] Calcium [Mass/Vol] 9.7 mg/dL Normal 7.6-11.0 [facility] Comment on above: Performed By: #### L 100.0100, L500.4050, L500.4100 ####[facility] [address] [place], [address] Chloride [Moles/Vol] 105 mmol/L Normal 98-108 [facility] Comment on above: Performed By: #### L 100.0100, L500.4050, L500.4100 ####[facility] [address] [place], [address] CO2 [Moles/Vol] 27.0 mmol/L Normal 21.0-32.0 [facility] Comment on above: Performed By: #### L 100.0100, L500.4050, L500.4100 ####[facility] [address] [place], [address] Creatinine [Mass/Vol] 0.65 mg/dL Low 0.70-1.20 [facility] Comment on above: Performed By: #### L 100.0100, L500.4050, L500.4100 ####[facility] [address] [place], [address] GAP 9 Normal 5-15 [facility] Comment on above: Performed By: #### L 100.0100, L500.4050, L500.4100 ####[facility] [address] [place], [address] GFR/1.73 sq M.predicted among non-blacks MDRD (S/P/Bld) [Vol rate/Area] 98 mL/min/{1.73_m2} Normal >60 [facility] Comment on above: Result Comment: mL/m in/1.73m2 CKD-EPI Creatinine Equation (2020) Performed By: #### L 100.0100, L500.4050, L500.4100 ####[facility] [address] [place], [address] Globulin (S) [Mass/Vol] 3.0 g/dL Normal 2.2-4.2 [facility] Comment on above: Performed By: #### L 100.0100, L500.4050, L500.4100 ####[facility] [address] [place], [address] Glucose [Mass/Vol] 103 mg/dL High 70-99 [facility] Comment on above: Performed By: #### L 100.0100, L500.4050, L500.4100 ####[facility] [address] [place], [address] Potassium [Moles/Vol] 4.2 mmol/L Normal 3.3-5.1 [facility] Comment on above: Performed By: #### L 100.0100, L500.4050, L500.4100 ####[facility] [address] [place], [address] Sodium [Moles/Vol] 141 mmol/L Normal 133-145 [facility] Comment on above: Performed By: #### L 100.0100, L500.4050, L500.4100 ####[facility] [address] [place], [address] T PROT 7.4 g/dL Normal 5.9-8.4 [facility] Comment on above: Performed By: #### L 100.0100, L500.4050, L500.4100 ####[facility] [address] [place], [address] Urea nitrogen [Mass/Vol] 21 mg/dL High 4-19 [facility] Comment on above: Performed By: #### L 100.0100, L500.4050, L500.4100 ####[facility] [address] [place], [address] Lipid Profileon 06-12-2025 CHOL:HDL 3.80 Normal [facility] Comment on above: Performed By: #### L 100.0100, L500.4050, L500.4100 ####[facility] [address] [place], [address] Cholesterol [Mass/Vol] 163 mg/dL Normal <=200 [facility] Comment on above: Result Comment: Chol esterol level, Desirable <200 mg/dL Borderline high cholesterol 200-239 mg/dL High cholesterol >=240 mg/dL Recommendations of the NCEP Adult Treatment Panel for the following risk-cutoff thresholds for the [place] population. Performed By: #### L 100.0100, L500.4050, L500.4100 ####[facility] [address] [place], [address] Cholesterol in HDL [Mass/Vol] 43 mg/dL Normal [facility] Comment on above: Result Comment: Libby onal Cholesterol Education Program (NCEP) guidelines: <40 mg/dL: Low HDL-cholesterol (major risk factor for CHD) >= 60 mg/dL: High HDL-cholesterol (negative risk factor for CHD) HDL-cholesterol is affected by a number of factors, e.g. smoking, exercise, hormones, sex and age. Performed By: #### L 100.0100, L500.4050, L500.4100 ####[facility] [address] [place], [address] Cholesterol in LDL [Mass/Vol] 85 mg/dL Normal [facility] Comment on above: Result Comment: Bord pctmrl=937-212 mg/dL Higher Utur=985 mg/dL or greater Carrillo Equation 2020 for LDL-C Performed By: #### L 100.0100, L500.4050, L500.4100 ####[facility] [address] [place], [address] Cholesterol in VLDL [Mass/Vol] 41 mg/dL High 5-40 [facility] Comment on above: Performed By: #### L 100.0100, L500.4050, L500.4100 ####[facility] [address] [place], [address] Triglyceride [Mass/Vol] 207 mg/dL High [facility] Comment on above: Result Comment: The drugs N-Acetylcysteine and Metamizole may falsely depress this assay. Normal range: <150 mg/dL Borderline High: 150-199 mg/dL High: 200-499 mg/dL Very High: >500 mg/dL Performed By: #### L 100.0100, L500.4050, L500.4100 ####[facility] [address] [place], [address] CNOVon 05-13-2025 CNOV Office Visit (GENSWS ) RAFAEL PECK ([id number]) 1960 F Date Time Provider Department 05/13/25 3:30 PM [facility] During your visit today, we recorded the following information about you: Pulse Respiration Blood pressure Weight 69/minute 14/minute 130/80 65.6 kg Juli Shane APRN.ANGELIC 05/13/2025 3:54 PM Signed HISTORY AND PHYSICAL Rafael Asifm : 1960 REFERRING PHYSICIAN: No referring provider defined for this encounter. CHIEF COMPLAINT: Patient presents with: Consult: Colonoscopy HPI: Rafael is a 65 year old female referred for endoscopy. Rafael notes due for screening colonoscopy. Rafael denies abdominal pain. Rafael denies diarrhea. Rafael denies constipation. Rafael denies a change in bowel habits. Rafael denies melena. Rafael denies bright red blood per rectum. Rafael denies hemorrhoids. Rafael denies family history of colon issues. Rafael denies heartburn. Rafael denies dysphagia. Rafael has undergone prior endoscopy. Last colonoscopy was 10/[address] Cotton at [facility]. Sedation: Midazolam 3.5 mg IV, Meperidine 100 mg IV Impression: - Diverticulosis in the sigmoid colon. Biopsied. - The examination was otherwise normal. CONVERTED FINAL DIAGNOSIS Colon, random, biopsy - Colonic mucosa with no diagnostic abnormalities; no evidence of lymphocytic or collagenous colitis. XL/jw 10-18-14 Current Outpatient Medications Medication Sig atorvastatin calcium (ATORVASTATIN PO) Take 5 mg by mouth daily at bedtime. Cholecalciferol, Vitamin D3, (VITAMIN D-3) 2,000 unit cap Take by mouth. MULTI-VITAMIN ORAL Take by mouth. peg 3350-Electrolytes (GOLYTELY) 236-22.74-6.74 -5.86 gram suspension Refer to printed prep instructions from your provider. No current facility-administered medications for this visit. ALLERGIES: Adhesive Tape (Rosins), Cinnamon Bark, Codeine, Lactose, and Phenobarbital PAST MEDICAL HISTORY Diagnosis Date Abdominal pain, generalized Diverticulitis of colon (without mention of hemorrhage)(562.11) Osteopenia Other malignant neoplasm of skin, site unspecified Non-melanoma skin cancer Other psoriasis PAST SURGICAL HISTORY Procedure Laterality Date APPENDECTOMY 08/12/1973 COLONOSCOPY FLX DX W/COLLJ SPEC WHEN PFRMD 10/15/2014 COLONOSCOPY W/BIOPSY SINGLE/MULTIPLE 12/24/2008 Random bxs HYSTERECTOMY 2017 LAPAROSCOPY SURG RPR INITIAL INGUINAL HERNIA 01/12/2009 right inguinal and lysis of adhesions SKIN BX, 1 LESION 08/12/1999 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 Eyes: The patient denies glaucoma, + eye injury/surgery, + glasses or contacts. Ear/Nose/Throat: The patient + allergies, + hayfever, denies ear infections, and denies bloody noses. Cardiovascular: The patient denies chest pain, denies heart disease, denies high blood pressure, ++ high cholesterol, and denies poor circulation. Respiratory: The patient denies tuberculosis, denies pneumonia, denies frequent cough, denies shortness of breath, and denies coughing up blood. Gastrointestinal: The patient denies difficulty swallowing, denies acid reflux, denies ulcers, denies jaundice/hepatitis, denies gallbladder problems, denies vomiting, denies black or tarry stools, denies hemorrhoids, denies bleeding from rectum, denies diverticulitis, denies constipation, denies diarrhea, denies loss of stool control, and + hernias. Kidney/Bladder: The patient + kidney stones, + urine infections, and denies bloody urine. Skin: The patient + a history of skin cancer, denies bleeding/changing moles, and denies a history of skin rash. Neurologic: The patient denies a history of epilepsy/convulsions, denies headaches, denies head/spinal injuries, and denies stroke/TIA. Psychiatric: The patient denies psychiatric medications, denies depression, and denies voices. Endocrine: The patient denies thyroid disorders, denies diabetes, and denies hormonal problems. Hematologic: The patient denies a history of bruising, denies bleeding, and denies anemia. Infections: The patient denies a history of measles and mumps, denies rheumatic fever, and denies sexually transmitted diseases. Musculoskeletal: The patient + back pain/injury, denies back problems, + sciatica, + knee/foot tr (more content not included)... [facility] RAFAEL PECK ([id number]) 1960 F Date Time Provider Department 02/23/25 JANUARY CERVANTES During your visit today, we recorded the following information about you: January Cervantes, Research Coordinator 02/23/2025 11:28 AM Signed IRB [id number]. [place] [facility] (BS) Linoleum Tile Layer: Benson Marin MD, , Barak Elizabeth MD, Hadoop Software Engineer: Juana Rivera and Email:[email or web address] Pt calling us back to learn more about study Allergies As of Date: 02/23/2025 Noted Allergy Reaction ADHESIVE TAPE (ROSINS) 06/26/2005 2 - Rash CINNAMON BARK 06/26/2005 5 - Intolerance CODEINE 06/26/2005 11 - Vomiting LACTOSE 11/30/2008 PHENOBARBITAL 06/26/2005 2 - Rash Date Reviewed: 10/15/2014 Reviewed by: Jacoby Montero (Rn) (Hist), RN - Fully Assessed Reason for Visit: Appointment [186] Cmt: IRB [id number] Prescriptions as of 02/23/2025 - PREMARIN vaginal cream - aspirin, enteric coated (ASPIRIN, ENTERIC COATED) 81 mg EC tablet Take 81 mg by mouth once daily. - Cholecalciferol, Vitamin D3, (VITAMIN D-3) 2,000 unit cap Take by mouth. - MULTI-VITAMIN ORAL Take by mouth. - medroxyPROGESTERone (PROVERA, CYCRIN) 10 mg tablet - CALCIUM CARBONATE 500 MG (1,250 MG) CHEWABLE TAB take four tabs daily. - METROGEL 1 % TOPICAL - NIZORAL 2 % TOPICAL CREAM Problem List As Of Date 02/23/2025 Noted Resolved ENLARGEMENT LYMPH NODES [R59.9] 06/26/2005 MEMORY LOSS [R41.3] 07/31/2007 INGUINAL HERNIA, UNILATERAL W/O GANGRENE/OBSTRU*2008 PAIN ABDOMEN GENERALIZED [R10.84] 11/30/2008 DIVERTICULITIS OF COLON W/O BLEED [K57.32] 12/24/2008 Change in bowel habits [R19.4] 09/29/2014 Encounter Status:Closed by JANUARY CERVANTES on 02/23/25 Normal [facility] Telephone ([facility]) RAFAEL PECK ([id number]) 1960 F Date Time Provider Department 02/23/25 JANUARY CERVANTES During your visit today, we recorded the following information about you: January Crevantes, Research Coordinator 02/23/2025 1:47 PM Signed IRB [id number]. [place] [facility] ([facility]) Linoleum Tile Layer: Benson Marin MD, , Barak Elizabeth MD, Hadoop Software Engineer: Juana Rivera and Email:[email or web address] Spoke with Rafael Peck to follow up about the [place] [facility] (BS): Biomarkers and Predictors of Neurological Disorders IRB 21-118. January Cervantes, Research Coordinator scheduled Rafael Karen Peck for study January Cervantes Research Coordinator Allergies As of Date: 02/23/2025 Noted Allergy Reaction ADHESIVE TAPE (ROSINS) 06/26/2005 2 - Rash CINNAMON BARK 06/26/2005 5 - Intolerance CODEINE 06/26/2005 11 - Vomiting LACTOSE 11/30/2008 PHENOBARBITAL 06/26/2005 2 - Rash Date Reviewed: 10/15/2014 Reviewed by: Jacoby Montero (Rn) (Hist), RN - Fully Assessed Reason for Visit: Appointment [186] Cmt: IRB [id number] Prescriptions as of 02/23/2025 - PREMARIN vaginal cream - aspirin, enteric coated (ASPIRIN, ENTERIC COATED) 81 mg EC tablet Take 81 mg by mouth once daily. - Cholecalciferol, Vitamin D3, (VITAMIN D-3) 2,000 unit cap Take by mouth. - MULTI-VITAMIN ORAL Take by mouth. - medroxyPROGESTERone (PROVERA, CYCRIN) 10 mg tablet - CALCIUM CARBONATE 500 MG (1,250 MG) CHEWABLE TAB take four tabs daily. - METROGEL 1 % TOPICAL - NIZORAL 2 % TOPICAL CREAM Problem List As Of Date 02/23/2025 Noted Resolved ENLARGEMENT LYMPH NODES [R59.9] 06/26/2005 MEMORY LOSS [R41.3] 07/31/2007 INGUINAL HERNIA, UNILATERAL W/O GANGRENE/OBSTRU*2008 PAIN ABDOMEN GENERALIZED [R10.84] 11/30/2008 DIVERTICULITIS OF COLON W/O BLEED [K57.32] 12/24/2008 Change in bowel habits [R19.4] 09/29/2014 Encounter Status:Closed by JANUARY CERVANTES on 02/23/25 Normal [facility] Re-Evaluation - PT (1)on Re-Evaluation - PT (1) [facility] [address] [place] [address]. [address] [place] [address] / REEVALUATION / MEDICARE RECERTIFICATION PHYSICAL THERAPY MR#: [id number] Acct: [id number] Name: RAFAEL PECK Rep #: [id number] : 1960 64 From: Alejandrina Hyman PT, Cert. MDT Referring Dr.: [facility] DO[facility] Status:REG RCR Insurance: [facility] Re-Evaluation Intro: JUAN MCNAMARA, It has been my pleasure to treat RAFAEL PECK over the last 6 visits for R KNEE MED SVETA LIG SPRAIN, ARTHRITIS CONCERN FOR MED MENISCUS TEAR. Please see the progress note below for an update on the physical therapy plan of care! Subjective Subjective: PATIENT REPORTS HER MOBILITY IS A LOT BETTER SINCE STARTING THERAPY. SHE REPORTS STEPS ARE GOING MUCH BETTER, GETTING IN AND OUT OF BED IS EASIER, GETTING IN AND OUT OF THE CAR IS GOING BETTER TOO. SHE REPORT SLEEP IS STILL A PROBLEM - THE PAIN IS WAKING HER UP AT NIGHT. SHE REPORTS PAIN IS RANGING 0/10 TO 3/10. NO LONGER TAKING ANY PAIN MEDICATION. STOPPED MELOXICAM WHEN IT RAN OUT 09/05/24. SHE ALSO REPORTS R MEDIAL KNEE PAIN WITH TWISTING MOTIONS, TRYING TO FLUTTER KICK IN THE POOL, WITH SLR'S AND ANY UNSTABLE SITUATIONS. HAS NOT TRIED RUNNING, SQUATTING, PASCALE OR SKIING. OTHER: PATIENT NOW REPORTING H/O OF FALL WHILE HIKING IN APR 2024 ON R KNEE. DURING THAT SAME TRIP TO [place] SHE HAD A SECOND FALL DOWN ON BOTH KNEES. SHE DENIES TREATMENT OR TESTING OF KNEES AT THAT TIME. Objective Objective/Function: PATIENT WAS SEEN TODAY FOR RE-ASSESSMENT OF PROGRESS TOWARD THE SET PT GOALS AND THE NEED FOR FURTHER PHYSICAL THERAPY VS READINESS FOR DISCHARGE. SHE IS MAKING STEADY PROGRESS WITH PHYSICAL THERAPY BUT STILL HAS SIGNIFICANT TIGHTNESS, WEAKNESS AND POSITIVE FINDINGS IN THE R LE INDICATING PATIENT MAY BENEFIT FROM FURTHER IMAGING. UPON EXAM TODAY: HIS PATIENT AMBULATES INDEP'LY INTO PT WITHOUT ANY GROSS DEVIATIONS NOTED. SHE IS ABLE TO ASCEND AND DESCEND STEPS RECIPROCALLY WITH ZERO TO ONE HR WITHOUT DEVIATION OR LIMITATION. JUANCHO LE LIGHT TOUCH SENSATION IS GROSSLY INTACT AND SYMMETRICAL. NO PALPABLE R KNEE EDEMA. SHE CONTINUES TO HAVE TENDERNESS WITH PALPATION ALONG THE R MCL REGION. R KNEE AROM IN LYING -0-0-137 degrees WITH C/O FULL OR COTTON TYPE PAIN FEELING IN KNEE INTO APPROX LAST 15 DEGREES OF AVAILABLE FLEXION ROM (COMPARED TO L KNEE 0-0-146 degrees). SEATED SHE HAS A 0 DEG EXTENSOR LAG NOW. STRENGTH: HIP FLEX R 20, L 28.4 LBS, HIP ABD R 21.7, L 29.9 LBS KNEE EXT R 35.4, L 42.4 LBS KNEE FLEX R 31.8, L 22.9 LBS (H/O L LE SCIATICA). JUANCHO ANKLES 5/5. Special Tests R Knee Pablo - Meniscus: Positive R Knee Valgus - MCL: Positive R Knee Varus - LCL: Negative R Knee Patellar Grind - PFS: Positive Plan Plan Plan: PATIENT PLANS TO CALL PHYSICIAN TO SEE IF SHE CAN GO AHEAD WITH MRI AND WANTS TO KEEP SCHEDULED PT APPOINTMENTS. CONT PER ORIG POC: R KNEE US, STM, ROM, STRETCHING AND STRENGTHENING IN OPEN AND CLOSED CHAIN TO HELP MEET SET GOALS. HEP INST. PATIENT HAS AN [employer] MEMBERSHIP SHE CAN USE TO SUPPLEMENT PHYSICAL THERAPY EXERCISE INDEP'LY WITH INSTRUCTION. Balance/Gait/Functiona l tests Balance/Special Test Scores Lower Extremity Functional Score: 60 Goals Goals Goal 1:: PATIENT WILL REPORT 0-2/10 R KNEE PAIN WITH ALL ACTIVITIES Goal Time Frame: 6-8 Weeks Goal Progress: Progressing Goal 2:: PATIENT WILL HAVE INCREASED R KNEE ROM TO AT LEAST 0-130 DEG FLEXION - Goal Met New Goal - Patient will have R knee ROM symmetrical with L Knee. Goal Time Frame: 6-8 Weeks Goal 3:: PATIENT WILL HAVE INCREASED RLE STRENGTH TO 5/5 THROUGHT ALLOWING FOR INCREASED STABILITY WITH ALL ACTIVITIES. Goal Time Frame: 6-8 Weeks Goal Progress: Progressing Goal 4:: PATIENT WILL BE ABLE TO WALK AND NEGOTIATE STEPS WITH 1 HR WITH RECIPROCAL PATTERN WITHOUT LIMITATIONS. (Met for level surfaces) Goal Time Frame: 6-8 Weeks Goal Progress: Progressing Goal 5:: INDEP HEP Goal Time Frame: 6-8 Weeks Goal Progress: Progressing Anticipated Interventions Anticipated Interventions Patient/Client Instruction: Educate patient on: Condition, Plan of Care and Risk Factors For the Purpose of:: To improve self management Therapeutic Exercise to Include: Strength training, Agility training, Body mechanics, Flexibilty training, Gait and locomotor training, Neuromotor development, In an aquatic setting, Passive ROM and Active ROM For the Purpose of:: To decrease pain, To decrease swelling/inflammation, To increase ROM, To improve nutrient delivery to tissue, To improve muscle performance and motor function, To increase tolerance to activity/condition/pos ition, To improve ability of physical actions for home/community/work/le isure, To improve gait and locomotor functions, To decrease soft tissue restriction, To increase flexibil (more content not included)... Normal [facility] Inital Evaluation (1) - PTon 08-19-2024 Inital Evaluation (1) - PT [facility] Physical Therapy [address] [place] [address] / REHABILITATION SERVICES INITIAL EVALUATION MR#: [id number] Acct: [id number] Name: RAFAEL PECK Rep #: [id number] : 1960 64 From: Alejandrina Hyman PT, Cert. MDT Referring Dr.: JUAN MCNAMARA Status: REG RCR Insurance: [employer] [facility] PACKAGE PLAN Patient's Visit Information Visit Information Visit Information: RAFAEL PECK is a 64 year old F referred to Physical Therapy by JUAN MCNAMARA with a diagnosis of R KNEE MED SVETA LIG SPRAIN, ARTHRITIS CONCERN FOR MED MENISCUS TEAR. Date of Evaluation: 08/19/24 Physical Therapist: Alejandrina Hyman, PT, Cert MDT Visit Plan Frequency: 2x /Week Duration: 6-8 Plan: R KNEE US, STM, ROM, STRETCHING AND STRENGTHENING IN OPEN AND CLOSED CHAIN TO HELP MEET SET GOALS. HEP INST. PATIENT HAS AN [employer] MEMBERSHIP SHE CAN USE TO SUPPLEMENT PHYSICAL THERAPY EXERCISE INDEP'LY WITH INSTRUCTION. Subjective Subjective: Work/Leisure: RETIRED Present symptoms: R MEDIAL KNEE PAIN Present since: 07/31/24 Pain Scale: WORST 4/10, LEAST 0/10 Currently: 0/10 IN SITTING. Is it getting better, worse or staying the same: GETTING BETTER. 60 TO 70% BETTER SINCE SEEING SPECIALIST 08/03/24 Commenced as a result of: TWISTED R FALLING WHILE SKIIING AT SNOW TRAILS. DENIES CLICKING, GRINDING AND POPPING. DENIES DISLOCATION. DENIES NUMBNESS AND TINGLING. REPORTS OCCASSIONAL GIVING OUT WHEN PAIN HIT INTENSELY. Symptoms at onset: A LOT MORE PAIN AND SWELLING IN THE R KNEE Worse: ROLLING OVER IN BED, R SDLY, GETTING IN/OUT OF CAR STIFF ON STEPS Better: REST, ICE, ELEVATION, OTC BRACE AND SLEEVE, WALKING IN POOL, AND MELOXICAM FOR THE PAST 2 WKS OR SO IN [place]. Gait: GUARDED AND SLOWER THAN NORMAL. MODIFIED ON STEPS DUE TO PAIN AND MOSTLY STIFFNESS Imaging: MILD MEDIAL COMPARTMENT NARROWING, NO ACUTE BONY PROCESS PER JUAN MCNAMARA APRN-OB/GYN PHYSICIAN'S REPORT BROUGHT BY PATIENT DATED 08/03/24. PMH/Recent major surgery: HIGH CHOLESTEROL, KIDNEY STONES, HYSTERECTOMY, HENIA REPAIR Objective Objective: THIS PATIENT AMBULATES INDEP'LY INTO PT WITHOUT ANY AD'S WEARING AN OTC R KNEE BRACE WITH A MILD LIMP AND WALKING ON A SLIGHTLY BENT R KNEE. NO LOB. JUANCHO LE LIGHT TOUCH SENSATION IS GROSSLY INTACT AND SYMMETRICAL. SHE HAS VERY MILD MEDIAL R KNEE EDEMA. SHE HAS TENDERNESS WITH PALPATION ALONG THE R MCL. R KNEE AROM IN LYING -9-0-120 degrees WITH PAIN INTO FLEXION AND EXTENSION. SEATED SHE HAS A 14 DEG EXTENSOR LAG. R LE STRENGTH: HIP 3+/5, KNEE EXT 2+/5, KNEE FLEX 3-/5, ANKLE 5/5. LLE STRENGTH AND ROM - WNL. STEPS: PATIENT ABLE TO ASCEND STEPS RECIP W/ONE HR BUT NOT WITHOUT SIGNIFICANT DEVICATION. DESCENDS WITH STEP TO PATTERN AND ONE HR. TREATMENT: GAIT TRAINING ON STEPS FOR STEP TO PATTERN UP AND DOWN WITH HR. NO PASCALE. CONTINUE POOL WALKING. INSTRUCTED PATIENT IN 4 WAYS ASSISTED SLR'S 2X5, 2 TIMES A DAY TOLERATED ( TO ASSIST NEEDED). ALSO INSTRUCTED IN PASSIVE EXTENTION STRETCHING AND HEEL SLIDES TO GENTLY WORK ON INCREASING FLEXION/EXTENSION ROM. CONT RICE FOR INFLAMMATION. Special Tests R Knee Pablo - Meniscus: Positive R Knee Amanda - ACL: Negative R Knee Anterior Drawer - ACL: Negative R Knee Posterior Drawer - PCL: Negative R Knee Valgus - MCL: Positive R Knee Varus - LCL: Negative R Knee Patellar Grind - PFS: Positive Balance/Special Test Scores Lower Extremity Functional Score: 52 Goals Goal 1:: PATIENT WILL REPORT 0-2/10 R KNEE PAIN WITH ALL ACTIVITIES Goal Time Frame: 6-8 Weeks Goal 2:: PATIENT WILL HAVE INCREASED R KNEE ROM TO AT LEAST 0-130 DEG FLEXION. Goal Time Frame: 6-8 Weeks Goal 3:: PATIENT WILL HAVE INCREASED RLE STRENGTH TO 5/5 THROUGHT ALLOWING FOR INCREASED STABILITY WITH ALL ACTIVITIES. Goal Time Frame: 6-8 Weeks Goal 4:: PATIENT WILL BE ABLE TO WALK AND NEGOTIATE STEPS WITH 1 HR WITH RECIPROCAL PATTERN WITHOUT LIMITATIONS. Goal Time Frame: 6-8 Weeks Goal 5:: INDEP HEP Goal Time Frame: 6-8 Weeks Rehabilitation Potential Physical Therapy Diagnosis: R LE PAIN, STIFFNESS AND WEAKNESS. IMPAIRED GAIT, ADL'S AND RECREATIONAL ACTIVITIES. Rehabilitation Potential: Good Anticipated Interventions Patient/Client Instruction: Educate patient on: Condition, Plan of Care and Risk Factors For the Purpose of:: To improve self management Therapeutic Exercise to Include: Strength training, Agility training, Body mechanics, Flexibilty training, Gait and locomotor training, Neuromotor development, In an aquatic setting, Passive ROM and Active ROM For the Purpose of:: To decrease pain, To decrease swelling/inflammation, To increase ROM, To improve nutrient delivery to tissue, To improve muscle performance and motor function, To increase tolerance to activity/condition/pos ition, To improve ability of physical actions for home/community/work/le (more content not included)... Normal [facility] SCRN MAMM (CAD)W/MARY KATE BILATo n 08-18-2024 SCRN MAMM (CAD)W/MARY KATE BILAT [facility] Imaging Services [address] [place] [address] SCRN MAMM (CAD)W/MARY KATE BILAT MR#: [id number] Acct: [id number] Name: RAFAEL PECK Rep #: [id number] : 1960 F 64 From: Kj torres MD PCP: Dr. Mojgan Marino MD Status: REG [facility] Study: SCRN MAMM (CAD)W/MARY KATE BILAT Date of Exam: 03/05 Exam# [id number] Ordering Dr: Mojgan Marino MD [id number] MAMMOGRAPHY - BILATERAL SCREENING REASON FOR EXAM: Female, 64 years old. Routine annual screening examination. PERTINENT HISTORY: Grandmother with breast cancer. Prior right ultrasound guided breast biopsies. TECHNIQUE: Digital bilateral breast mary kate (3D mammographic acquisition) in the CC and MLO projections. 2-D mediolateral oblique (MLO) and craniocaudad (CC) views of both breasts were obtained. CAD: Full Field Digital Mammography with Computer Added Detection was performed. COMPARISON: Comparison is made with prior study dated August 16, 2023 and August 14, 2022. FINDINGS: Breast Composition: There are scattered areas of fibroglandular density. There are no dominant masses or suspicious calcifications. Once again, a tissue clip marker is seen in the upper lateral aspect of the right breast. Stable bilateral fat containing axillary lymph nodes. No other significant abnormalities are identified. There has been no significant change since the prior study. BI/SCRN MAMM (CAD)W/MARY KATE BILAT IMPRESSION: Stable bilateral screening mammogram. Yearly follow-up mammogram recommended. (A) ASSESSMENT CATEGORY: BIRADS Category 2: Benign. A letter regarding these results will be sent to the patient by the facility within 30 days. Approximately 10% of breast cancers are not detected by mammography. A normal mammogram should not delay biopsy of a clinically suspicious abnormality. [id number] Electronically Signed: Kj Lutz MD at 8:37 EST Reading Location ID and State: [facility] / [place] , Service support , CC: Dr. Mojgan Marino MD Youth Coordinator: Signed Normal [facility] 12 Lead EKGon 07-22-2024 12 Lead EKG [facility] Cardiovascular Services [address] [place] [address] 12 Lead EKG 07/22/24 0842 MR#: [id number] Acct: [id number] Name: RAFAEL PECK Rep #: [id number] : 1960 64 From: Isael Roberts MD Attending Dr: Dr. Anjum Coronado MD Status: REG I Ordering Dr: Anjum Coronado MD Date: 07/22/24 Location: [facility] Sex: F C Admitted: Test Reason : PREOP Blood Pressure : */* mmHG Vent. Rate : 70 BPM Atrial Rate : 70 BPM P-R Int : 150 ms QRS Dur : 80 ms QT Int : 396 ms P-R-T Axes : 60 63 71 degrees QTcB Int : 427 ms Normal sinus rhythm Normal ECG Reconfirmed by ISAEL ROBERTS MD ([id number]), photography editor YESSY JEFFRIES ([id number]) on 07/22/2024 12:54:38 PM Referred By: Anjum Coronado Confirmed By: ISAEL ROBERTS MD 07/22/24 1254 Date Isael Roberts MD CC: Dr. Mojgan Marino MD; Dr. Anjum Coronado MD Signed Normal [facility] Abdomen Single Viewon 2023 Abdomen Single View [facility] Imaging Services [address] [place] [address] Abdomen Single View MR#: [id number] Acct: [id number] Name: RAFAEL PECK Rep #: [id number] : 1960 F 64 From: Marly Pratt MD PCP: Dr. Mojgan Marino MD Status: REG CLI Study: Abdomen Single View Date of Exam: 07/22/24 Exam# [id number] Ordering Dr: Anjum Coronado MD [id number] INDICATION: CALCULUS OF KIDNEY EXAMINATION/TECHNIQUE: X-RAY - XR Abdomen 1 View COMPARISON: July 02, 2024 FINDINGS: BOWEL GAS PATTERN: Non-obstructive. No bowel or stomach distention. FREE AIR: Not assessed on a single supine view. ORGANOMEGALY: Not seen. CALCIFICATIONS: No abnormal calcifications observed. BONES AND SOFT TISSUES: No acute pathology. There is evidence of prior anterior abdominal wall repair within the right lower abdomen. RAD/Abdomen Single View IMPRESSION: Nonspecific bowel gas pattern. No renal or ureteral calculus identified. Electronically Signed: Marly Pratt MD at 9:13 EST , CC: Dr. Mojgan Marino MD; Dr. Anjum Coronado MD Youth Coordinator: Signed Normal [facility] Basic Metabolic Profile (BMP )on 07-22-2024 BUN/CRE 10.1 RATIO Normal - [facility] Comment on above: Performed By: #### L 500.2500, L100.0500 ####[facility] [address] [place], [address] CA,Total 9.7 mg/dL Normal 8.5-10.1 [facility] Comment on above: Performed By: #### L 500.2500, L100.0500 ####[facility] [address] [place], [address] Chloride [Moles/Vol] 108 mmol/L High 98-107 [facility] Comment on above: Performed By: #### L 500.2500, L100.0500 ####[facility] [address] [place], [address] CO2 [Moles/Vol] 29.0 mmol/L Normal 21.0-32.0 [facility] Comment on above: Performed By: #### L 500.2500, L100.0500 ####[facility] [address] [place], [address] Creatinine [Mass/Vol] 0.70 mg/dL Normal 0.55-1.02 [facility] Comment on above: Result Comment: The validity of the calculated GFR GFRAA in patients over 70 years has not been determined. Clinical correlation is essential. Performed By: #### L 500.2500, L100.0500 ####[facility] [address] [place], [address] EST GFR - AA 109 mL/min Normal >60 [facility] Comment on above: Result Comment: Afri can [place] GFR Calc Performed By: #### L 500.2500, L100.0500 ####[facility] [address] [place], [address] GAP 3 Low 5-15 [facility] Comment on above: Performed By: #### L 500.2500, L100.0500 ####[facility] [address] [place], [address] GFR/1.73 sq M.predicted among non-blacks MDRD (S/P/Bld) [Vol rate/Area] 90 mL/min/{1.73_m2} Normal >60 [facility] Comment on above: Result Comment: Non- GFR Calc Performed By: #### L 500.2500, L100.0500 ####[facility] [address] [place], [address] Glucose [Mass/Vol] 91 mg/dL Normal 74-106 [facility] Comment on above: Performed By: #### L 500.2500, L100.0500 ####[facility] [address] [place], [address] Potassium [Moles/Vol] 4.1 mmol/L Normal 3.5-5.1 [facility] Comment on above: Performed By: #### L 500.2500, L100.0500 ####[facility] [address] [place], [address] Sodium [Moles/Vol] 141 mmol/L Normal 136-145 [facility] Comment on above: Performed By: #### L 500.2500, L100.0500 ####[facility] [address] [place], [address] Urea nitrogen [Mass/Vol] 7 mg/dL Normal 7-18 [facility] Comment on above: Performed By: #### L 500.2500, L100.0500 ####[facility] [address] [place], [address] CBC-Complete Blood Cnt No Di ffon 07-22-2024 Erythrocyte distribution width (RBC) [Ratio] 13.0 % Normal 11.6-14.6 [facility] Comment on above: Performed By: #### L 500.2500, L100.0500 #### [facility] Laboratory [address] [place], [address] Hematocrit (Bld) [Volume fraction] 41.0 % Normal 37-47 [facility] Comment on above: Performed By: #### L 500.2500, L100.0500 #### [facility] [address] [place], [address] Hemoglobin (Bld) [Mass/Vol] 13.2 g/dL Normal 12.0-15.0 [facility] Comment on above: Performed By: #### L 500.2500, L100.0500 #### [facility] [address] [place], [address] MCH (RBC) [Entitic mass] 30.6 pg Normal 27.0-32.0 [facility] Comment on above: Performed By: #### L 500.2500, L100.0500 #### [facility] [address] [place], [address] MCHC (RBC) [Mass/Vol] 32.2 g/dL Normal 32-36 [facility] Comment on above: Performed By: #### L 500.2500, L100.0500 #### [facility] [address] [place], [address] MCV (RBC) [Entitic vol] 95.1 fL Normal 81-99 [facility] Comment on above: Performed By: #### L 500.2500, L100.0500 #### [facility] [address] [place], [address] Platelet mean volume (Bld) [Entitic vol] 9.7 fL Normal 6.2-12.0 [facility] Comment on above: Performed By: #### L 500.2500, L100.0500 #### [facility] [address] [place], [address] Platelets (Bld) [#/Vol] 322 10*3/uL Normal 150-450 [facility] Comment on above: Performed By: #### L 500.2500, L100.0500 #### [facility] [address] [place], [address] RBC (Bld) [#/Vol] 4.31 10*6/uL Normal 4.2-5.4 [facility] Comment on above: Performed By: #### L 500.2500, L100.0500 #### [facility] [address] [place], [address] RDW SD 46.0 fl High 35.1-43.9 [facility] Comment on above: Performed By: #### L 500.2500, L100.0500 #### [facility] [address] [place], [address] WBC (Bld) [#/Vol] 5.6 10*3/uL Normal 4.4-11.0 [facility] Comment on above: Performed By: #### L 500.2500, L100.0500 #### [facility] [address] [place], [address] Abdomen/Pelvis without Conto n 07-07-2024 Abdomen/Pelvis without Cont [facility] Imaging Services [address] [place] [address] Abdomen/Pelvis without Cont MR#: [id number] Acct: [id number] Name: RAFAEL PECK Rep #: [id number] : 1960 F 64 From: Evan Huntley MD PCP: Dr. Mojgan Marino MD Status: REG CLI Study: Abdomen/Pelvis without Cont Date of Exam: 06/13 02/02 Exam# [id number] Ordering Dr: Anjum Coronado MD [id number] STUDY: CT ABDOMEN AND PELVIS WITHOUT CONTRAST REASON FOR EXAM: Female, 64 years old. Calculus of kidney RADIATION DOSAGE (If Supplied By Facility): CTDIvol = ( 6.36 ) mGy, DLP = ( 314.54 ) mGycm TECHNIQUE: Transaxial images were obtained from the dome of the diaphragm to the symphysis pubis without oral contrast, and without intravenous contrast. Sagittal and coronal images were reconstructed. Individualized dose optimization techniques were used for this CT. COMPARISON: 06/30/2024 FINDINGS: The visualized lung bases are unremarkable. The visualized portions of the heart are within normal limits. Normal liver. Normal gallbladder and extrahepatic biliary system. Normal spleen. Normal pancreas. Normal bilateral adrenal glands. 2 mm obstructing stone at the right ureteral pelvic junction with mild hydronephrosis. Normal left kidney. Normal visualized stomach. Normal small intestine. Normal colon. There is non-visualization of the appendix. Normal abdominal aorta. Normal inferior vena cava. Normal retroperitoneum. Normal urinary bladder. Status post repair of right medially in hernia with mesh. No residual or recurrent hernia. Normal osseous structures. CT/Abdomen/Pelvis without Cont IMPRESSION: 2 mm obstructing stone at the right ureteral pelvic junction with mild hydronephrosis. Electronically Signed: Evan Huntley MD at 13:54 EST , CC: Dr. Mojgan Marino MD; Dr. Anjum Coronado MD Youth Coordinator: Signed Normal [facility] Abdomen Single Viewon 2023 Abdomen Single View [facility] Imaging Services [address] [place] [address] Abdomen Single View MR#: [id number] Acct: [id number] Name: RAFAEL PECK Rep #: [id number] : 1960 F 64 From: Pepito boyd MD PCP: Dr. Mojgan Marino MD Status: REG CLI Study: Abdomen Single View Date of Exam: 07/02/24 Exam# [id number] Ordering Dr: Mojgan Marino MD [id number] STUDY: X-RAY - ABDOMEN/PELVIS REASON FOR EXAM: Female, 64 years old. KIDNEY STONE TECHNIQUE: Single AP view of the abdomen / pelvis. COMPARISON: CT scan 06/30/2024. FINDINGS: Normal visualized lung bases. There is moderate diffuse fecal retention, otherwise unremarkable bowel gas pattern. There is no demonstrated free abdominal air. No definite renal or ureteral stones although exam limited by overlying bowel contents. The visualized liver, spleen and kidneys are grossly normal in size and morphology. Normal soft tissue structures. Normal visualized osseous structures. RAD/Abdomen Single View IMPRESSION: Fecal retention. No definite renal or ureteral stones. Electronically Signed: Pepito Plaza MD at 17:38 EST , CC: Dr. Mojgan Marino MD Youth Coordinator: Signed Normal [facility] Emergency Department Summary on 07-01-2024 Emergency Department Summary [facility] Medical Records Department [address] [place] [id number] Emergency Department Summary 07/01/24 MR#: [id number] Acct: [id number] Name: ARFAEL PECK Rep #: [id number] : 1960 64 From: Jesse Schwab DO PCP: Dr. Mojgan Marino MD Status:DEP ER Location: ED HPI History of Present Illness Chief Complaint: Flank Pain Informant: patient and spouse/S.O. Narrative Narrative: Patient is a 64-year-old female with no significant past medical history. She states that this evening roughly 2 to 3 hours prior to arrival she developed a right sided back/flank pain that was sharp in nature. She states that the pain caused bouts of nausea and vomiting. She also reports she noticed some hematuria after the pain began. She denies any recent trauma or excessive activity she denies any loss of bowel or bladder control or IV drug use. She states the pain has since resolved but as she does not know what caused the symptoms presents for evaluation [facility] Home Medications ???Medication ???Instructions ???Recorded ???Last Taken ???Type aspirin 81 mg tablet,delayed 81 mg PO DAILY@0800 11/18/13 06/24/17 History release calcium carbonate 2 tab PO BID 11/18/13 11/26/13 History cholecalciferol (vitamin D3) 50 1 tab PO BID 11/18/13 11/26/13 History mcg (2,000 unit) tablet (Vitamin D3) ketoconazole 2 % topical cream 1 applic topical DAILY 11/18/13 11/26/13 History multivitamin with folic acid 400 1 tab PO DAILY 11/18/13 11/26/13 History mcg tablet (Thera) estradiol 0.01% (0.1 mg/gram) 1 dose vaginal MOTH 04/02/17 Unknown History vaginal cream (Estrace) cyanocobalamin (vitamin B-12) 500 1,000 mcg PO DAILY@0800 04/08/17 Unknown History mcg tablet docusate sodium 100 mg capsule 100 mg PO BID PRN PRN Constipation 07/01/17 Unknown Rx (DOK) ##60 oxycodone 5 mg tablet 5 - 10 mg (1 - 2 x 5 mg) PO Q6H 07/01/17 Unknown Rx PRN PRN Severe Pain (6-10/) ##20 cephalexin 500 mg capsule 500 mg PO TID 7 days #21 caps 07/01/24 Unknown Rx ketorolac 10 mg tablet 10 mg PO 4X/DAY PRN pain 5 days 07/01/24 Unknown Rx #20 tabs ondansetron 4 mg disintegrating 4 mg PO TID PRN nausea and 07/01/24 Unknown Rx tablet vomiting #21 tabs tamsulosin 0.4 mg capsule (Flomax) 0.4 mg PO DAILY 14 days #14 caps 07/01/24 Unknown Rx Allergy/AdvReac Type Severity Reaction Status Date / Time cat dander Allergy Inflammation Verified 06/30/24 21:05 of lung phenobarbital Allergy Rash Verified 06/30/24 21:05 codeine AdvReac Intermediate Nausea/Vom/ Verified 06/30/24 21:05 Diarrhea adhesive AdvReac Mild Rash Verified 06/30/24 21:05 lactose AdvReac Nausea/Vom/ Verified 06/30/24 21:05 Diarrhea Social History Smoking Status: Never smoker ROS ROS ED Constitutional Constitutional ED: Denies chills or fever(s) ENT ENT ED: Denies sore throat Cardiovascular Cardiovascular: Denies chest pain Respiratory/Chest Respiratory/Chest: Denies cough or dyspnea Gastrointestinal Gastrointestinal: Reports abdominal pain, nausea and vomiting; Denies diarrhea Genitourinary Genitourinary ED: Reports hematuria; Denies dysuria or urinary frequency Musculoskeletal Musculoskeletal: Reports back pain Integumentary Denies rash Neurologic Neurologic: Denies headache(s) Hematologic/Lymphatic Hematologic/Lymphatic: Denies easy bleeding or easy bruising EXAM Physical Exam Const Vital Signs: 06/30/24 23:04 Pulse Rate 77 Respiratory Rate 17 Blood Pressure 132/73 H Blood Pressure Mean 92 Pulse Ox 98 Oxygen Delivery Method Room Air Positive well nourished and well developed General Appearance ED: well developed; Negative for pallor HEENT HEENT Narrative: Normocephalic atraumatic Eyes PERRL and EOMs intact bilaterally General Eye ED: Negative for scleral icterus Neck supple Resp normal respiratory effort and clear to auscultation bilaterally Cardio regular rate and regular rhythm GI normal to inspection, nondistended, normoactive bowel sounds, non-tender, non-distended and no masses GI Narrative: No voluntary guarding or rigidity or pulsatile mass Auscultation: normoactive bowel sounds Palpation: soft Back/Spine Back/Spine Narrative: Positive right CVA pain noted Extremity normal to inspection Neuro oriented x3, CN's II-XII intact bilaterally and no sensory deficits noted Sensorium / Orientation: alert Motor Exam: strength 5/5 throughout Psych mental status grossly normal Skin no rashes or lesions noted and no wounds Skin Narrative: No overlying soft tissue changes to suggest trauma or infection General Skin Exam: Negative for jaundice or pallor MDM MDM MDM Narrative Medical decision making narrative: Patient arrived to the ER hypertensive but otherwise with stabl (more content not included)... Normal [facility] Abdomen/Pelvis without Conto n 06-30-2024 Abdomen/Pelvis without Cont [facility] Imaging Services [address] [place] [address] Abdomen/Pelvis without Cont MR#: [id number] Acct: [id number] Name: RAFAEL PECK Rep #: [id number] : 1960 F 64 From: Matteo Palm MD PCP: Dr. Mojgan Marino MD Status: DEP ER Study: Abdomen/Pelvis without Cont Date of Exam: 06/12 05/05 Exam# [id number] Ordering Dr: Jesse Schwab DO [id number] STUDY: CT ABDOMEN AND PELVIS WITH CONTRAST REASON FOR EXAM: Female, 64 years old. Right flank pain RADIATION DOSAGE (If Supplied By Facility): CTDIvol = ( 6.78 ) mGy, DLP = ( 328.50 ) mGycm TECHNIQUE: Spiral CT imaging of the abdomen and pelvis was performed with intravenous contrast material ( / ), followed by coronal and sagittal reformatting. Individualized dose optimization techniques were used for this CT. COMPARISON: No relevant priors. FINDINGS: LOWER CHEST: Bibasilar dependent atelectasis versus scar formation.. Normal heart. Normal pericardium. LIVER: Normal GALLBLADDER AND BILIARY TREE: Normal gallbladder. Normal biliary ductal system. SPLEEN: Normal PANCREAS: Normal ADRENAL GLANDS: Normal KIDNEYS AND URETERS: Mild right-sided hydronephrosis with a 4 mm calculus at the right ureteropelvic junction.. BOWEL: Normal stomach. Normal small bowel. Normal appendix. Mild diverticular disease of the sigmoid colon without localized inflammation.. PERITONEUM: No free intraperitoneal air or fluid. No intra-abdominal fluid collection. LYMPH NODES: No mesenteric, retroperitoneal, or pelvic lymphadenopathy. VESSELS: Mild atherosclerotic plaque of the abdominal vasculature. URINARY BLADDER: Normal REPRODUCTIVE ORGANS: Uterus is surgically absent ABDOMINAL WALL: Normal BONES: Mild multilevel degenerative change of the spine. CT/Abdomen/Pelvis without Cont IMPRESSION: 1. 4 mm right ureteropelvic junction calculus resulting in mild right-sided hydronephrosis 2. Mild sigmoid colonic diverticulosis without evidence of acute diverticulitis. Electronically Signed: Matteo Palm MD at 0:55 EST , CC: Dr. Mojgan Marino MD; Jesse Schwab DO Youth Coordinator: Signed Normal [facility] CBC W/Diff, Automatedon 06-12 Absolute Lymph 1.68 X10 3/uL Normal 0.83-4.51 [facility] Comment on above: Performed By: #### L 500.4050, L100.0100 #### [facility] [address] [place], [address] Absolute Neut 10.3 X10 3/uL High 2.0-7.7 [facility] Comment on above: Performed By: #### L 500.4050, L100.0100 #### [facility] [address] [place], [address] Basophils/100 WBC (Bld) 0.3 % Normal 0-1 [facility] Comment on above: Performed By: #### L 500.4050, L100.0100 #### [facility] [address] [place], [address] Eosinophils/100 WBC (Bld) 2.3 % Normal 0-5 [facility] Comment on above: Performed By: #### L 500.4050, L100.0100 #### [facility] [address] [place], [address] Erythrocyte distribution width (RBC) [Ratio] 13.0 % Normal 11.6-14.6 [facility] Comment on above: Performed By: #### L 500.4050, L100.0100 #### [facility] [address] [place], [address] Hematocrit (Bld) [Volume fraction] 37.9 % Normal 37-47 [facility] Comment on above: Performed By: #### L 500.4050, L100.0100 #### [facility] [address] [place], [address] Hemoglobin (Bld) [Mass/Vol] 12.7 g/dL Normal 12.0-15.0 [facility] Comment on above: Performed By: #### L 500.4050, L100.0100 #### [facility] [address] [place], [address] IG% 0.500 Normal 0.0-0.9 [facility] Comment on above: Result Comment: IG% - Immature Granulocytes (promyelocytes, myelocytes and metamyelocytes) > 1% indicates that a LEFT SHIFT is Present. Performed By: #### L 500.4050, L100.0100 #### [facility] [address] [place], [address] Lymphocytes/100 WBC (Bld) 12.8 % Low 19-41 [facility] Comment on above: Performed By: #### L 500.4050, L100.0100 #### [facility] [address] [place], [address] MCH (RBC) [Entitic mass] 31.5 pg Normal 27.0-32.0 [facility] Comment on above: Performed By: #### L 500.4050, L100.0100 #### [facility] [address] [place], [address] MCHC (RBC) [Mass/Vol] 33.5 g/dL Normal 32-36 [facility] Comment on above: Performed By: #### L 500.4050, L100.0100 #### [facility] [address] [place], [address] MCV (RBC) [Entitic vol] 94.0 fL Normal 81-99 [facility] Comment on above: Performed By: #### L 500.4050, L100.0100 #### [facility] [address] [place], [address] Monocytes/100 WBC (Bld) 5.8 % Normal 0-10 [facility] Comment on above: Performed By: #### L 500.4050, L100.0100 #### [facility] [address] [place], [address] Neutrophils/100 WBC (Bld) 78.3 % High 47-70 [facility] Comment on above: Performed By: #### L 500.4050, L100.0100 #### [facility] [address] [place], [address] Nucleated RBC (Bld) [#/Vol] 0 10*3/uL Normal 0-5 [facility] Comment on above: Performed By: #### L 500.4050, L100.0100 #### [facility] [address] [place], [address] Platelet mean volume (Bld) [Entitic vol] 10.1 fL Normal 6.2-12.0 [facility] Comment on above: Performed By: #### L 500.4050, L100.0100 #### [facility] [address] [place], [address] Platelets (Bld) [#/Vol] 278 10*3/uL Normal 150-450 [facility] Comment on above: Performed By: #### L 500.4050, L100.0100 #### [facility] [address] [place], [address] RBC (Bld) [#/Vol] 4.03 10*6/uL Low 4.2-5.4 [facility] Comment on above: Performed By: #### L 500.4050, L100.0100 #### [facility] [address] [place], [address] RDW SD 44.4 fl High 35.1-43.9 [facility] Comment on above: Performed By: #### L 500.4050, L100.0100 #### [facility] [address] [place], [address] WBC (Bld) [#/Vol] 13.2 10*3/uL High 4.4-11.0 [facility] Comment on above: Performed By: #### L 500.4050, L100.0100 #### [facility] [address] [place], [address] Comprehensive Metabolic Prof ilon 06-30-2024 Albumin [Mass/Vol] 4.1 g/dL Normal 3.2-5.0 [facility] Comment on above: Performed By: #### L 500.4050, L100.0100 #### [facility] [address] [place], [address] Albumin/Globulin [Mass ratio] 1.1 {ratio} Normal 0.9-2.4 [facility] Comment on above: Performed By: #### L 500.4050, L100.0100 #### [facility] [address] [place], [address] ALK P 74 U/L Normal 45-117 [facility] Comment on above: Performed By: #### L 500.4050, L100.0100 #### [facility] [address] [place], [address] ALT [Catalytic activity/Vol] 30 U/L Normal 13-56 [facility] Comment on above: Performed By: #### L 500.4050, L100.0100 #### [facility] [address] [place], [address] AST [Catalytic activity/Vol] 26 U/L Normal 15-37 [facility] Comment on above: Performed By: #### L 500.4050, L100.0100 #### [facility] [address] [place], [address] Bilirubin [Mass/Vol] 0.40 mg/dL Normal 0.20-1.00 [facility] Comment on above: Result Comment: For patients on eltrombopag therapy, use of Dimension [place] TBIL is not recommended. Performed By: #### L 500.4050, L100.0100 #### [facility] [address] [place], [address] BUN/CRE 22.4 RATIO High 10-20 [facility] Comment on above: Performed By: #### L 500.4050, L100.0100 #### [facility] [address] [place], [address] CA,Total 9.9 mg/dL Normal 8.5-10.1 [facility] Comment on above: Performed By: #### L 500.4050, L100.0100 #### [facility] [address] [place], [address] Chloride [Moles/Vol] 106 mmol/L Normal 98-107 [facility] Comment on above: Performed By: #### L 500.4050, L100.0100 #### [facility] [address] [place], [address] CO2 [Moles/Vol] 27.0 mmol/L Normal 21.0-32.0 [facility] Comment on above: Performed By: #### L 500.4050, L100.0100 #### [facility] [address] [place], [address] Creatinine [Mass/Vol] 0.80 mg/dL Normal 0.55-1.02 [facility] Comment on above: Result Comment: The validity of the calculated GFR GFRAA in patients over 70 years has not been determined. Clinical correlation is essential. Performed By: #### L 500.4050, L100.0100 #### [facility] [address] [place], [address] ECRCL 69.09 ml/min Normal [facility] Comment on above: Performed By: #### L 500.4050, L100.0100 #### [facility] [address] [place], [address] EST GFR - AA 92 mL/min Normal >60 [facility] Comment on above: Result Comment: Afri can Pan[place]ian GFR Calc Performed By: #### L 500.4050, L100.0100 #### [facility] [address] [place], [address] GAP 5 Normal 5-15 [facility] Comment on above: Performed By: #### L 500.4050, L100.0100 #### [facility] [address] [place], [address] GFR/1.73 sq M.predicted among non-blacks MDRD (S/P/Bld) [Vol rate/Area] 76 mL/min/{1.73_m2} Normal >60 [facility] Comment on above: Result Comment: Non- GFR Calc Performed By: #### L 500.4050, L100.0100 #### [facility] [address] [place], [address] Globulin (S) [Mass/Vol] 3.6 g/dL Normal 2.2-4.2 [facility] Comment on above: Performed By: #### L 500.4050, L100.0100 #### [facility] [address] [place], [address] Glucose [Mass/Vol] 127 mg/dL High 74-106 [facility] Comment on above: Result Comment: Fast ing Glucose result greater than or equal to 126 mg/dL suggests DIABETES MELLITUS per A.D.A. criteria. Performed By: #### L 500.4050, L100.0100 #### [facility] [address] [place], [address] Potassium [Moles/Vol] 3.8 mmol/L Normal 3.5-5.1 [facility] Comment on above: Performed By: #### L 500.4050, L100.0100 #### [facility] [address] [place], [address] Sodium [Moles/Vol] 138 mmol/L Normal 136-145 [facility] Comment on above: Performed By: #### L 500.4050, L100.0100 #### [facility] [address] [place], [address] T PROT 7.7 g/dL Normal 6.4-8.2 [facility] Comment on above: Performed By: #### L 500.4050, L100.0100 #### [facility] [address] [place], [address] Urea nitrogen [Mass/Vol] 18 mg/dL Normal 7-18 [facility] Comment on above: Performed By: #### L 500.4050, L100.0100 #### [facility] [address] [place], [address] Urinalysis, Completeon 06-30 BACTERIA RARE Normal None Seen [facility] Comment on above: Order Comment: CLEAN CATCH Performed By: #### L 400.0001 #### [facility] [address] [place], [address] EPI,SQUAMOUS 0-5 SEEN Normal 5-10 [facility] Comment on above: Order Comment: CLEAN CATCH Performed By: #### L 400.0001 #### [facility] [address] [place], [address] RBC 25-50 SEEN Normal 0-5 [facility] Comment on above: Order Comment: CLEAN CATCH Performed By: #### L 400.0001 #### [facility] [address] [place], [address] WBC 0-5 SEEN Normal 0-5 [facility] Comment on above: Order Comment: CLEAN CATCH Performed By: #### L 400.0001 #### [facility] [address] [place], [place], [address] Mucus Ql (Urine sed) 0 SEEN Normal [facility] Comment on above: Order Comment: CLEAN CATCH Performed By: #### L 400.0001 #### [facility] [address] [place], [place], [address] Absolute lymphocyte countOrd ered By: Mojgan Marino on 05-23-2023 Lymphocytes Auto (Unsp spec) [#/Vol] 1.67 10*3/uL 0.83-4.51 [facility] Basophil percentageOrdered B y: Mojgan Marino on 05-23-2023 Basophils/100 WBC (Bld) 0.7 % 0-1 [facility] Bilirubin [Mass/Vol] 0.70 mg/dL 0.20-1.00 [facility] Comment on above: For patients on eltr ombopag therapy, use of Dimension [place] TBIL is not recommended. Chloride [Moles/Vol] 109 mmol/L 98-107 [facility] Cholesterol [Mass/Vol] 160 mg/dL <200 [facility] Comment on above: <200 mg/dL Desirable 200-240 mg/dL Borderline >240 mg/dL High Risk Eosinophils/100 WBC (Bld) 3.7 % 0-5 [facility] Glucose [Mass/Vol] 92 mg/dL 74-106 [facility] Neutrophils (Bld) [#/Vol] 5.6 10*3/uL 2.0-7.7 [facility] Neutrophils/100 WBC (Bld) 67.5 % 47-70 [facility] Potassium [Moles/Vol] 4.1 mmol/L 3.5-5.1 [facility] Protein [Mass/Vol] 7.6 g/dL 6.4-8.2 [facility] Sodium [Moles/Vol] 141 mmol/L 136-145 [facility] Triglyceride [Mass/Vol] 141 mg/dL <199 [facility] Comment on above: The drugs N-Acetylcy steine and Metamizole may falsely depress this assay.Serum Triglycerides Reference Interval Normal <150 mg/dL Borderline high 150 - 199 mg/dL High 200 - 499 mg/dL Very High > or = 500 mg/dL WBC (Bld) [#/Vol] 8.4 10*3/uL 4.4-11.0 [facility] Blood erythrocytes count (nu mber/volume)Ordered By: Mojgan Marino on 05-23-2023 RBC (Bld) [#/Vol] 4.31 10*6/uL 4.2-5.4 [facility] Blood hemoglobin measurement (mass/volume)Ordered By: Mojgan Marino on 05-23-2023 Hemoglobin (Bld) [Mass/Vol] 13.4 g/dL 12.0-15.0 [facility] Blood lymphocytes/100 leukoc ytesOrdered By: Mojgan Marino on 05-23-2023 Lymphocytes/100 WBC (Bld) 20.0 % 19-41 [facility] Blood monocytes/100 leukocyt esOrdered By: Mojgan Marino on 05-23-2023 Monocytes/100 WBC (Bld) 7.9 % 0-10 [facility] Blood platelet mean volumeOr dered By: Mojgan Marino on 05-23-2023 Platelet mean volume (Bld) [Entitic vol] 10.5 fL 6.2-12.0 [facility] Determination of erythrocyte mean corpuscular volume (MCV)Ordered By: Mojgan Marino on 05-23-2023 MCV (RBC) [Entitic vol] 98.4 fL 81-99 [facility] Hematocrit Auto (Bld) [Volum e fraction]Ordered By: Mojgan Marino on 05-23-2023 Hematocrit (Bld) [Volume fraction] 42.4 % 37-47 [facility] Laboratory - Chemistry and C hemistry - challengeOrdered By: Mojgan Marino on 05-23-2023 ALP [Catalytic activity/Vol] 70 U/L 45-117 [facility] ALT [Catalytic activity/Vol] 33 U/L 13-56 [facility] CO2 [Moles/Vol] 28.0 mmol/L 21.0-32.0 [facility] Globulin (S) [Mass/Vol] 3.7 g/dL 2.2-4.2 [facility] Urea nitrogen/Creatinine [Mass ratio] 21.0 mg/mg 10-20 [facility] - Hematology and Cell countsOrdered By: Mojgan Marino on 05-23-2023 Erythrocyte distribution width (RBC) [Entitic vol] 45.2 fL 35.1-43.9 [facility] Erythrocyte distribution width (RBC) [Ratio] 12.6 % 11.6-14.6 [facility] Immature granulocytes/100 WBC (Bld) 0.200 % 0.0-0.9 [facility] Comment on above: IG% - Immature Granu locytes (promyelocytes, myelocytes and metamyelocytes) > 1% indicates that a LEFT SHIFT is Present. MCH (RBC) [Entitic mass] 31.1 pg 27.0-32.0 [facility] Nucleated RBC/100 WBC (Bld) [Ratio] 0 % 0-5 [facility] MCHC Auto (RBC) [Mass/Vol]Or dered By: Mojgan Marino on 05-23-2023 MCHC (RBC) [Mass/Vol] 31.6 g/dL 32-36 [facility] No Panel InformationOrdered By: Mojgan Marino on 05-23-2023 Estimated GFR (MDRD) Amer 115 mL/min >60 [facility] Comment on above: GFR Calc Estimated GFR (MDRD) Non-Af Amer 95 mL/min >60 [facility] Comment on above: Non- GFR Calc Platelets bldOrdered By: Camilo Marino on 05-23-2023 Platelets (Bld) [#/Vol] 310 10*3/uL 150-450 [facility] Serum or plasma albumin tito urement (mass/volume)Ordered By: Mojgan Marino on 05-23-2023 Albumin [Mass/Vol] 3.9 g/dL 3.2-5.0 [facility] Serum or plasma albumin/glob ulin mass ratioOrdered By: Mojgan Marino on 05-23-2023 Albumin/Globulin [Mass ratio] 1.1 {ratio} 0.9-2.4 [facility] Serum or plasma calcium tito urement (mass/volume)Ordered By: Mojgan Marino on 05-23-2023 Calcium [Mass/Vol] 9.4 mg/dL 8.5-10.1 [facility] Serum or plasma cholesterol in HDL measurement (mass/volume)Ordered By: Mojgan Marino on 05-23-2023 Cholesterol in HDL [Mass/Vol] 49 mg/dL >40 [facility] Comment on above: The drugs N-Acetylcy steine and Metamizole may falsely depress this assay. Reference Range HDL <40 mg/dL Low HDL Cholesterol HDL >or= 60 mg/dL High HDL Cholesterol Serum or plasma cholesterol in VLDL measurement (mass/volume)Ordered By: Mojgan Marino on 05-23-2023 Cholesterol in VLDL [Mass/Vol] 28 mg/dL 5-40 [facility] Serum or plasma creatinine m easurement (mass/volume)Ordered By: Mojgan Marino on 05-23-2023 Creatinine [Mass/Vol] 0.67 mg/dL 0.55-1.02 [facility] Comment on above: The validity of the calculated GFR & GFRAA in patients over 70 years has not been determined. Clinical correlation is essential. Serum or plasma low density lipoprotein (LDL) cholesterol measurement (mass/volume)Ordered By: Mojgan Marino on 05-23-2023 Cholesterol in LDL [Mass/Vol] 83 mg/dL 0-130 [facility] Serum or plasma urea nitroge n measurement (mass/volume)Ordered By: Mojgan Marino on 05-23-2023 Urea nitrogen [Mass/Vol] 14 mg/dL 7-18 [facility] Thin prep Papanicolaou smear with manual screeningOrdered By: Mojgan Marino on 05-23-2023 Thin prep Papanicolaou smear with manual screening 21 U/L 15-37 [facility] Thin prep Papanicolaou smear with manual screening 4 5-15 [facility] LABORATORYOrdered By: Natividad Horne on 10-21-2021 Cholesterol [Mass/Vol] 147 mg/dL Invalid Interpretation Code 0 - 200 mg/dL AO ADM SS Cholesterol in HDL [Mass/Vol] 52 mg/dL Invalid Interpretation Code 40 - 60 mg/dL AO ADM SS Cholesterol in LDL [Mass/Vol] 72 mg/dL Invalid Interpretation Code 0 - 130 mg/dL AO ADM SS Triglyceride [Mass/Vol] 117 mg/dL Invalid Interpretation Code 0 - 150 mg/dL AO ADM SS Vit. D 25-Hydroxy 37.5 ng/mL Invalid Interpretation Code AO ADM SS LIPIDon 10-21-2021 Cholesterol [Mass/Vol] 147 mg/dL Normal 0-200 [facility] [place] Comment on above: Result Comment: Chol esterol Reference Interval: Less than 200 Desirable 200-239 Borderline high risk 240 and above High risk Performed By: #### L IPID, VIDH #### [address] [address] Cholesterol in HDL [Mass/Vol] 52 mg/dL Normal 40-60 [facility] [place] Comment on above: Performed By: #### L IPID, VIDH #### [address] [address] Cholesterol in LDL [Mass/Vol] 72 mg/dL Normal 0-130 [facility] [place] Comment on above: Performed By: #### L IPID, VIDH #### [address] [address] Triglyceride [Mass/Vol] 117 mg/dL Normal 0-150 [facility] [place] Comment on above: Result Comment: Trig lyceride Reference Interval: Less than 150 Normal 150-199 Borderline high risk 200-499 High risk 500 or higher Very high risk Performed By: #### L IPID, VIDH #### [address] [address] VIDHon 10-21-2021 Vit. D 25-Hydroxy 37.5 ng/mL Normal [facility] [place] Comment on above: Result Comment: Inte rpretive Values Based on Total 25(OH) Vitamin D: Deficient <20 ng/mL Insufficient 20 - <30 ng/mL Sufficient 30-100 ng/mL Performed By: #### L IPID, VIDH #### [address] [address] .GFRon 04-08-2021 GFR 92 ml/min/1.73sqm Normal [facility] [place] Comment on above: Result Comment: GFR Population mean for , Non- Americans Ages 20-29 = 116 mL/min/1.73 sq.m. Ages 30-39 = 107 mL/min/1.73 sq.m. Ages 40-49 = 99 mL/min/1.73 sq.m. Ages 50-59 = 93 mL/min/1.73 sq.m. Ages 60-69 = 85 mL/min/1.73 sq.m. Ages 70+ = 75 mL/min/1.73 sq.m. Chronic Kidney Disease: Less than 60 mL/min/1.73 square meters End Stage Renal Disease: Less than 15 mL/min/1.73 square meters Performed By: #### C MP #### [address] [address] #### GFR #### [place] [address] GFR Non- 76 ml/min/1.73sqm Normal [facility] [place] Comment on above: Result Comment: GFR Population mean for , Non- Americans Ages 20-29 = 116 mL/min/1.73 sq.m. Ages 30-39 = 107 mL/min/1.73 sq.m. Ages 40-49 = 99 mL/min/1.73 sq.m. Ages 50-59 = 93 mL/min/1.73 sq.m. Ages 60-69 = 85 mL/min/1.73 sq.m. Ages 70+ = 75 mL/min/1.73 sq.m. Chronic Kidney Disease: Less than 60 mL/min/1.73 square meters End Stage Renal Disease: Less than 15 mL/min/1.73 square meters Performed By: #### C MP #### [address] [address] #### GFR #### [address] [address] CMPon 04-08-2021 Albumin Level 4.1 G/dL Normal 3.4-4.8 [facility] [place] Comment on above: Performed By: #### C MP #### [address] [address] #### GFR #### [place] [address] Albumin/Globulin [Mass ratio] 1.2 {ratio} Normal 1.1-2.5 [facility] ([place] Comment on above: Performed By: #### C MP #### [address] [address] #### GFR #### [place] [address] ALP [Catalytic activity/Vol] 76 U/L Normal 40-135 [facility] [place] Comment on above: Performed By: #### C MP #### [place] [address] #### GFR #### [place] [address] ALT [Catalytic activity/Vol] 29 U/L Normal 14-59 [facility] [place] Comment on above: Performed By: #### C MP #### [address] [address] #### GFR #### [place] [id number] AST [Catalytic activity/Vol] 18 U/L Normal 10-40 [facility] [place] Comment on above: Performed By: #### C MP #### [address] [address] #### GFR #### [place] [address] Bili Total 0.7 mg/dL Normal 0.2-1.0 [facility] ([place] Comment on above: Result Comment: Use of this assay is not recommended for patients undergoing treatment with eltrombopag due to the potential for falsely elevated results. Performed By: #### C MP #### [address] [address] #### GFR #### [address] [address] BUN/Creatinine Ratio 19 ratio Normal 7-27 [facility] ([place]) Comment on above: Performed By: #### C MP #### [address] [address] #### GFR #### [address] [address] Calcium [Mass/Vol] 9.5 mg/dL Normal 8.4-10.2 [facility] ([place]) Comment on above: Performed By: #### C MP #### [address] [address] #### GFR #### [address] [address] Chloride [Moles/Vol] 103 mmol/L Normal 98-107 [facility] ([place] Comment on above: Performed By: #### C MP #### [address] [address] #### GFR #### [address] [address] CO2 [Moles/Vol] 28 mmol/L Normal 23-31 [facility] ([place] Comment on above: Performed By: #### C MP #### [address] [address] #### GFR #### [address] [address] Creatinine [Mass/Vol] 0.77 mg/dL Normal 0.55-1.02 [facility] ([place]) Comment on above: Performed By: #### C MP #### [address] [address] #### GFR #### [address] [address] Electrolyte Balance 11.0 mEq/L Normal [facility] ([place]) Comment on above: Performed By: #### C MP #### [address] [address] #### GFR #### [address] [address] Globulin 3.3 G/dL Normal [facility] ([place] Comment on above: Performed By: #### C MP #### [address] [address] #### GFR #### [address] [address] Glucose [Mass/Vol] 93 mg/dL Normal 80-115 [facility] ([place] Comment on above: Performed By: #### C MP #### [address] [address] #### GFR #### [address] [address] Potassium [Moles/Vol] 4.2 mmol/L Normal 3.5-5.1 [facility] ([place]) Comment on above: Performed By: #### C MP #### [address] [address] #### GFR #### [address] [address] Sodium [Moles/Vol] 142 mmol/L Normal 136-145 [facility] ([place] Comment on above: Performed By: #### C MP #### [address] [address] #### GFR #### [address] [address] Total Protein 7.4 G/dL Normal 6.4-8.2 [facility] ([place] Comment on above: Performed By: #### C MP #### [address] [address] #### GFR #### [address] [address] Urea nitrogen [Mass/Vol] 15 mg/dL Normal 7-18 [facility] [place] Comment on above: Performed By: #### C MP #### [address] [address] #### GFR #### [address] [place], [place] [address] LIPIDon 04-08-2021 Cholesterol [Mass/Vol] 145 mg/dL Normal 0-200 [facility] [place] Comment on above: Result Comment: Chol esterol Reference Interval: Less than 200 Desirable 200-239 Borderline high risk 240 and above High risk Performed By: #### L IPID #### [facility] [address] [place], [place] [address] Cholesterol in HDL [Mass/Vol] 48 mg/dL Normal 40-60 [facility] [place] Comment on above: Performed By: #### L IPID #### [facility] [address] [place], [place] [address] Cholesterol in LDL [Mass/Vol] 78 mg/dL Normal 0-130 [facility] [place] Comment on above: Performed By: #### L IPID #### [facility] [address] [place], [place] [address] Triglyceride [Mass/Vol] 95 mg/dL Normal 0-150 [facility] [place] Comment on above: Result Comment: Trig lyceride Reference Interval: Less than 150 Normal 150-199 Borderline high risk 200-499 High risk 500 or higher Very high risk Performed By: #### L IPID #### [facility] [address] [place], [place] [address] Encounters Encounter Date Encounter Type Care Provider Facility Start: 06-29-2025 ambulatory [facility] Facility: [facility] Start: 06-12-2025 Encounter for genera l adult medical examination without abnormal findings [facility] Start: 06-12-2025 ambulatory [facility] Facility: [facility] Start: 05-13-2025 End: 05-13-2025 ambulatory JULI SHANE Facility:[facility] Start: 02-23-2025 End: 02-23-2025 Telephone encounter January Cervantes Research Coordinator Research Comment on above: Appointment (IRB [phone]) Start: 09-22-2024 End: 09-22-2024 ambulatory [facility] Facility:[facility] Start: 08-25-2024 Encounter for other preprocedural examination Anjum Coronado [facility] Start: 08-18-2024 End: 08-18-2024 ambulatory Mojgan Miedel Facility:[facility] Start: 07-22-2024 End: 07-22-2024 ambulatory Troygenevieve Roberts Facility:[facility] Start: 07-22-2024 End: 07-22-2024 [facility] Start: 07-16-2024 End: 07-16-[address] ANJUM CORONADO MD Facility:[facility] Start: 07-16-2024 End: 07-16-[address] ANJUM CORONADO MD [facility] Start: 07-07-2024 End: 07-07-2024 ambulatory Anjum Coronado Facility:[facility] Start: 07-02-2024 End: 07-02-2024 ambulatory [facility] Facility:[facility] Start: 06-30-2024 End: 07-01-2024 Emergency department patient visit Jessemelissa Schwab Facility:[facility] Start: 08-16-2023 End: 08-16-2023 ambulatory [facility] Work Phone: Start: 08-16-2023 End: 08-16-2023 Patient encounter procedure [facility]-Outpatient Breast Imaging Work Phone: Start: 05-23-2023 End: 05-23-2023 ambulatory [facility] Work Phone: Start: 05-23-2023 End: 05-23-2023 Patient encounter procedure [facility] Start: 12-03-2022 End: 12-03-2022 ambulatory [facility] Work Phone: Start: 12-03-2022 End: 12-03-2022 Discharged Recurring [facility]-Physical Therapy Work Phone: Start: 11-15-2022 End: 11-15-2022 Patient encounter procedure [facility]-Radiology, [place] Work Phone: Start: 08-14-2022 End: 08-14-2022 ambulatory [facility] Work Phone: Start: 08-14-2022 End: 08-14-2022 Patient encounter procedure [facility]-Outpatient Breast Imaging Start: 10-21-2021 End: 10-21-[address] JUANA WEAVER DO [facility] Start: 09-29-2014 End: 09-29-2014 Telephone encounter Chan Cotton MD Work Phone: General Surgery Comment on above: Outpatient [place] py (10-15-2014 c-scope [facility]) Procedures Date Procedure Procedure Detail Performing Clinician Start: 08-16-2023 Screening mammography Start: 11-15-2022 Plain X-ray of shoulder Start: 08-14-2022 Screening mammography Start: 10-15-2014 Colonoscopy Chan bray MD Work Phone: Plan of Treatment Date Care Activity Detail Author Start: 01-23-2035 RSV Vaccine (1 - 1-d ose 75+ series) RSV Vaccine (1 - 1-dose 75+ series) [place] Start: 04-12-2025 Influenza vaccination Influenza Vacc ine (#1) [place] Start: 03-18-2025 End: 03-18-2025 Patient encounter procedure Research Comment on above: #10 Year 1 5722 Start: 01-23-2025 Advance Directive Discussion Advance Directive Discussion [place] Start: 01-23-2025 Screening for osteoporosis Bone Density Screening [place] Start: 10-15-2024 Screening for malign ant neoplasm of colon [place] Start: 04-12-2024 Covid-19 Vaccine ( season) Covid-19 Vaccine ( season) [place] Start: 04-12-2021 Influenza vaccination INFLUENZA (Sea son Ended) [place] Start: 01-23-2010 Pneumococcal Vaccine : 50+ (1 of 1 - PCV) Pneumococcal Vaccine: 50+ (1 of 1 - PCV) [place] Start: 01-23-2010 Screening for malign ant neoplasm of colon [place] Start: 01-23-2010 SHINGRIX VACCINE (1 of 2) SHINGRIX V ACCINE (1 of 2) [place] Start: 01-23-2005 DIABETES SCREEN DIABETES SCREEN [facility] Start: 01-23-2005 Diabetes Screening Diabetes Screenin g [place] Start: 01-23-2005 Lipid panel Lipid Screening [facility] Start: 01-23-2005 LIPID SCREEN LIPID SCREEN [place] Start: 01-23-2005 Screening for malign ant neoplasm of colon [place] Start: 2000 Mammography MAMMOGRAM [place] Start: 2000 Screening for malign ant neoplasm of breast Mammogram Screening [place] Start: 01-23-1990 HPV TESTING HPV TESTING [place] Start: 01-23-1981 PAP TESTING PAP TESTING [place] Start: 01-23-1979 Urine microalbumin profile [place] Start: 01-23-1978 Anxiety Screening Anxiety Screening [place] Start: 01-23-1978 Depression Screening Depression Scre ening [place] Start: 01-23-1978 HEPATITIS C SCREENING HEPATITIS C [facility] Start: 01-23-1978 Hepatitis C screening Hepatitis C [facility] Start: 01-23-1978 HIV SCREENING HIV SCREENING [facility] Start: 01-23-1978 HIV screening HIV Screening [facility] Start: 1972 Adult depression screening assessment DEPRESSION SCREENING [place] Immunizations Immunization Date Immunization Notes Care Provider Ramila knox 10-28-2020 COVID-19, mRNA, LNP- S, PF, 100 mcg or 50 mcg dose; Translations: [Moderna COVID-19 Vaccine] DR JUANA WEAVER DO [facility] 09-30-2020 COVID-19, mRNA, LNP- S, PF, 100 mcg or 50 mcg dose; Translations: [Moderna COVID-19 Vaccine] DR JUANA WEAVER DO [facility] 05-12-2017 Influenza virus vaccine [facility] Payers Date Payer Category Payer Medicare [id number] 2024 Unknown [id number] 2024 Private Health Insurance [id number] 2024 Self-pay [id number] 2023 Private Health Insurance [employer] [id number] 2012 Unknown [employer] [place] [id number] 2012 Unknown [employer] [id number] 2002 Unknown MMO [employer] PLUS [id number] 2002-2019 PPO [id number] 1960 Unknown [id number] Unknown [facility] P[employer]AGE PLAN [id number] Unknown [id number] Unknown [id number] Unknown [id number] Unknown [id number] [id number] Unknown [id number] Unknown [id number] Unknown [id number] Unknown [id number] Unknown [id number] [id number] Unknown [id number] [id number] Social History Date Type Detail Facility Start: 09-29-2014 Tobacco smoking stat us [facility] Never smoker [place] Start: 09-29-2014 End: 03-28-2022 Alcohol intake Current drinker of alcohol (finding) [place] Start: 1960 Sex Assigned At Not on file C [facility] Start: 06-25-2017 End: 06-25-2017 Tobacco smoking status [facility] Unknown if ever smoked [facility] Start: 1960 Sex Assigned At Female [facility] Start: 07-22-2024 Gender identity Identifies as female gender (finding) [place] Start: 07-22-2024 Sexual orientation Heterosexual (fin ding) [place] Clinical Notes 10-05-2014 to 05-13-2025 Telephone Encounter - January Cervantes Research Coordinator - 02/23/2025 1:46 PM EDTTelephone Encounter - January Cervantes Research Coordinator - 02/23/2025 1:46 PM EDT Note Date & Type Note Facility 05-13-2025 Note HNO ID: [id number] Author: JULI SHANE APRN.OB/GYN PHYSICIAN Service: ? Author Type: Nurse Practitioner Type: Progress Notes Filed: 05/13/2025 15:54 Note Text: HISTORY AND PHYSICAL Rafael Jones Cisco : 1960 REFERRING PHYSICIAN: No referring provider defined for this encounter. CHIEF COMPLAINT: Patient presents with: Consult: Colonoscopy HPI: Rafael is a 65 year old female referred for endoscopy. Rafael notes due for screening colonoscopy. Rafael denies abdominal pain. Rafael denies diarrhea. Rafael denies constipation. Rafael denies a change in bowel habits. Rafael denies melena. Rafael denies bright red blood per rectum. Rafael denies hemorrhoids. Rafael denies family history of colon issues. Rafael denies heartburn. Rafael denies dysphagia. Rafael has undergone prior endoscopy. Last colonoscopy was 10/[address] Cotton at [facility]. Sedation: Midazolam 3.5 mg IV, Meperidine 100 mg IV Impression: - Diverticulosis in the sigmoid colon. Biopsied. - The examination was otherwise normal. CONVERTED FINAL DIAGNOSIS Colon, random, biopsy - Colonic mucosa with no diagnostic abnormalities; no evidence of lymphocytic or collagenous colitis. XL/jw 3-9-15 Current Outpatient Medications Medication Sig atorvastatin calcium (ATORVASTATIN PO) Take 5 mg by mouth daily at bedtime. Cholecalciferol, Vitamin D3, (VITAMIN D-3) 2,000 unit cap Take by mouth. MULTI-VITAMIN ORAL Take by mouth. peg 3350-Electrolytes (GOLYTELY) 236-22.74-6.74 -5.86 gram suspension Refer to printed prep instructions from your provider. No current facility-administered medications for this visit. ALLERGIES: Adhesive Tape (Rosins), Cinnamon Bark, Codeine, Lactose, and Phenobarbital PAST MEDICAL HISTORY Diagnosis Date Abdominal pain, generalized Diverticulitis of colon (without mention of hemorrhage)(562.11) Osteopenia Other malignant neoplasm of skin, site unspecified Non-melanoma skin cancer Other psoriasis PAST SURGICAL HISTORY Procedure Laterality Date APPENDECTOMY 08/12/1973 COLONOSCOPY FLX DX W/COLLJ SPEC WHEN PFRMD 10/15/2014 COLONOSCOPY W/BIOPSY SINGLE/MULTIPLE 12/24/2008 Random bxs HYSTERECTOMY 2017 LAPAROSCOPY SURG RPR INITIAL INGUINAL HERNIA 01/12/2009 right inguinal and lysis of adhesions SKIN BX, 1 LESION 08/12/1999 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 Eyes: The patient denies glaucoma, + eye injury/surgery, + glasses or contacts. Ear/Nose/Throat: The patient + allergies, + hayfever, denies ear infections, and denies bloody noses. Cardiovascular: The patient denies chest pain, denies heart disease, denies high blood pressure, ++ high cholesterol, and denies poor circulation. Respiratory: The patient denies tuberculosis, denies pneumonia, denies frequent cough, denies shortness of breath, and denies coughing up blood. Gastrointestinal: The patient denies difficulty swallowing, denies acid reflux, denies ulcers, denies jaundice/hepatitis, denies gallbladder problems, denies vomiting, denies black or tarry stools, denies hemorrhoids, denies bleeding from rectum, denies diverticulitis, denies constipation, denies diarrhea, denies loss of stool control, and + hernias. Kidney/Bladder: The patient + kidney stones, + urine infections, and denies bloody urine. Skin: The patient + a history of skin cancer, denies bleeding/changing moles, and denies a history of skin rash. Neurologic: The patient denies a history of epilepsy/convulsions, denies headaches, denies head/spinal injuries, and denies stroke/TIA. Psychiatric: The patient denies psychiatric medications, denies depression, and denies voices. Endocrine: The patient denies thyroid disorders, denies diabetes, and denies hormonal problems. Hematologic: The patient denies a history of bruising, denies bleeding, and denies anemia. Infections: The patient denies a history of measles and mumps, denies rheumatic fever, and denies sexually transmitted diseases. Musculoskeletal: The patient + back pain/injury, denies back problems, + sciatica, + knee/foot trouble, denies arthritis, or denies gout. PHYSICAL EXAMINATION: General: The patient is 65 year old, female well nourished, well hydrated in no acute distress. The patient is oriented to time, place, and person. VITALS: Blood pressure 130/80, pulse 69, re (more content not included)... [facility] [facility] 02-23-2025 Telephone encount er Note IRB 21-834. [place] [facility] ([facility]) Linoleum Tile Layer: Benson Marin MD, , Barak Elizabeth MD, Hadoop Software Engineer: Juana Rivera and Email:[email or web address] Spoke with Rafael Peck to follow up about the [place] [facility] (BS): Biomarkers and Predictors of Neurological Disorders IRB 21-834. January Cervantes Research Coordinator scheduled Rafael Peck for study January Cervantes Research Coordinator [place] 02-23-2025 Miscellaneous Notes Formattin g of this note might be different from the original. IRB 21-834. [place] [facility] ([facility]) Linoleum Tile Layer: Benson Marin MD, , Barak Elizabeth MD, Hadoop Software Engineer: Juana Rivera and Email:[email or web address] Spoke with Rafael Peck to follow up about the [place] [facility] (BS): Biomarkers and Predictors of Neurological Disorders IRB 21-834. January Cervantes Research Coordinator scheduled Rafael Peck for study January Cervantes Research Coordinator documented in this encounter [place] 02-23-2025 Telephone encount er Note IRB 21-834. [place] [facility] (BS) Linoleum Tile Layer: Benson Marin MD, , Barak Elizabeth MD, Hadoop Software Engineer: Juana Rivera and Email:[email or web address] Pt calling us back to learn more about study [place] 02-23-2025 Miscellaneous Notes Formattin g of this note might be different from the original. IRB 21-834. [place] [facility] ([facility]) Linoleum Tile Layer: Benson Marin MD, , Barak Elizabeth MD, Hadoop Software Engineer: Juana Rivera and Email:[email or web address] Pt calling us back to learn more about study documented in this encounter [place] 07-18-2024 Note . MICRO - Microbiology PROCEDURE: Urine Culture [O1 *1] SOURCE: Urine BODY SITE: COLLECTED DATE/TIME: 07/16/2024 13:09 EST RECEIVED DATE/TIME: 07/16/2024 19:03 EST START DATE/TIME: 07/16/2024 19:03 EST FREE TEXT SOURCE: FINAL REPORTS Final Report [] Verified Date/Time/Personnel: 07/18/2024 07:50 EST <10,000 cfu/ml. No Significant growth. Sensitivity not indicated. PRELIMINARY REPORTS Preliminary Report [] Verified Date/Time/Personnel: 07/17/2024 11:04 EST No growth to date Order Comments O1: Urine Culture Fax to primary care Performing Locations *1: This test was performed at: [facility], [address] [place] [address], [facility] , [facility] 07-16-2024 Evaluation + Plan note Diagnostic Tests PendingUrine Culture 07/16/24 [facility] 02-25-2023 Discharge summary Note Date/Time February 25, 2023 11:47am [facility] Physical Therapy [facility] [facility] [place] [address] / REHABILITATION SERVICES DISCHARGE SUMMARY MR#: [id number] Acct: [id number] Name: RAFAEL PECK Rep #: [id number] : 1960 63 From: Emily GERBER T Referring Dr.: Dr. Mojgan Marino MD Status: REG RCR Insurance: [facility] PACKAGE PLAN Discharge Summary D/C summary: It has been my pleasure to treat RAFAEL PECK referred by Dr. Mojgan Marino MD, with the diagnosis of Right Shoulder for a total of 1 visit(s). Discharge Date: Please see the following information for a summary of their discharge status. Goals Goal 1:: Patient will be I with HEP and progression Plan Plan: 1x visit for HEP- posture and RTC and scapular strength/stabilization HEP Given IE: Posture, Phase 3 RTC Strength, Triceps Extn D/C Information d/c sentence: If there are questions or concerns regarding this patient's physical therapy, please feel free to call me at [phone]. Thank you for the referral of thispatient. Sincerely, Emily Cook DPT Balance/Gait/Functional tests Balance/Special Test Scores Quick DASH Score: 34.0900 <Electronically signed by Emily Cook DPT> 02/25/23 1147 CC: Dr. Mojgan Marino MD ~ ELR Signed [facility] Work Phone: [phone] Miscellaneous Notes* Telephone Encounter - Veronica Brown LPN - 10/05/2014 8:42 AM EST LEFT PT MESSAGE TO INFORM HER, PER DR. COTTON, OK TO TAKE DOXYCYCLINE DIRECTED AND MAY PROCEED WITH COLONOSCOPY PLANNED. 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 PT HAS COLONOSCOPYSCHEDULED FOR EARLY OCTOBER, PT ASKING IF THIS WILL BE AN ISSUE? WILL DISCUSS WITH DR. COTTON AND RETURN HER CALL WITH HIS ADVICE. Veronica Brown LPN documented in this encounterCentervilleEvaluation + Plan note No data available for this section [facility] Evaluation noteNo assessment information available [facility] Work Phone: Hospital Discharge instructions No data available for this section [facility] Progress note No data available for this section [facility] Summary Purpose Family History No Family History Records Found No data available for this section No Family History Records FoundNo Family History Records FoundNo Family History Records Found Advance Directives No Advanced Directives Records Found Advance Directive Response Recorded Date/ Time Advance Directives Yes November 18 14 2:25pm Living Will Yes July 01 017 11:01am Power of Medical Practice Administrator Yes July 01, 2017 11:01am Advance Directive Response Recorded Date/ Time Advance Directives Yes November 18 14 3:25pm Living Will Yes July 01 017 12:01pm Power of Medical Practice Administrator Yes July 01, 2017 12:01pm Chief Complaint and Reason for Visit Chief Complaint SCREENING Chief Complaint FALL R SHOULDER RX HERE Chief Complaint SCREEN Additional Source Comments Source Comments (unrecognize d section and content) In the event this informatio n is protected by the Federal Confidentiality of Alcohol and Drug Abuse Patient Records regulations: The Federal rules restrict any use of the information to criminally investigate or prosecute any alcohol or drug abuse patient.[place] the event this information is protected by the Federal Confidentiality of Alcohol and Drug Abuse Patient Records regulations: The Federal rules restrict any use of the information to criminally investigate or prosecute any alcohol or drug abuse patient.[place] the event this information is protected by the Federal Confidentiality of Alcohol and Drug Abuse Patient Records regulations: The Federal rules restrict any use of the information to criminally investigate or prosecute any alcohol or drug abuse patient.[place] Reason for Visit (unrecogniz ed section and content) Reason Onset Date Comments Outpatient Colonoscopy 09/29/2014201 5 c-scope [facility] Reason Comments Appointment IRB 21-834 INFORMATION SOURCE (unrecogn ized section and content) DATE CREATED AUTHOR 10/24/2021 [facility] DATE CREATED AUTHOR AUTHOR'S ORGANIZ ATION 07/21/2024 [facility] DATE CREATED AUTHOR AUTHOR'S ORGANIZ ATION 05/18/2025 [facility] DATE CREATED AUTHOR AUTHOR'S ORGANIZ ATION 06/19/2025 [facility] Goals (unrecognized section and content) Goals may be documented in a n alternate section Care Teams (unrecognized sec tion and content) Team Status: Active Member Role Status Dates Dr. Juana Weaver DO Family Provider Active Dr. Mojgan Marino MD Primary Care Provider Active Team Status: Inactive Member Role Status Dates Dr. Mojgan Marino MD Primary Care Prov ider, Attending Provider, Referring Provider Active FOR RECORDS PERTAINING TO PATIENTS WHO ARE [...] BE BASED ON THE PRIMARY CLINICAL RECORDS. [employer] [facility]. provides no warranty or guarantee of the accuracy or completeness of information in this document.
== END | disposition home or self-care (01) ==
LOC: OPBD 08:46
PROVIDERS: PCP Family Medicine; Referring Provider Family Medicine; Visit Provider Family Medicine
DX: M85.80 Other specified disorders of bone density and structure, unspecified site (principal); Z78.0 Asymptomatic menopausal state
CPT/HCPCS: 77080